=== PATIENT | female | born 1955 | race Caucasian/White ===

== ENCOUNTER 2017-09-29 09:23 | Inpatient (IN) | payer MEDICAID, SELFPAY ==
[2017-09-29] VITALS (40 sets, daily range): BP systolic 102–168; BP diastolic 56–92; PULSE 67–86; RESP 16–20; TEMP 36.1–36.9; O2SAT 96–100; BMI 17.3; BMI 17.7; BMI 16.1
--- NOTE | 2017-09-29 09:35 | XR_ITS ---
XR chest portable Ordering Physician: Theron Campos MD Patient Age: 62 years: Female HISTORY: ITS.REASON: chest pain TECHNIQUE: AP portable upright chest COMPARISON :Previous portable chest 01/13/2014 & 2012 CXR AP view FINDINGS Interval change with abnormal elongated masslike density right paratracheal region on today's study associated with apical pleural thickening intact, most evident extending medially towards the mediastinum. These findings require CT with contrast to further evaluate. Question there may have been a recent attempted central line placement which could contribute?. This suspected mass measuring 6 -7 cm length x 2.5 cm transverse. There is no shift of the trachea remains midline. . The lung verdugo appear clear with no focal infiltrate. Heart upper normal in size. Borderline cardiomegaly.. No CHF. No pleural effusions. Chest wall unremarkable Hilar regions. The left noe appears satisfactory. The right suprahilar region is questionably partially obscured by this right peritracheal density, mass. IMPRESSION: 1. New mass density right paratracheal requires warrants CT chest with contrast further evaluate. Prominent fullness & likely mass/adenopathy right peritracheal region along with generous pleural thickening at the medial right apex . Lungs clear otherwise. Borderline cardiomegaly
--- NOTE | 2017-09-29 09:41 | HMH.EDDIZZ ---
ED Disposition Clinical Impression: NSTEMI (non-ST elevated myocardial infarction), Orthostatic hypotension, Hypokalemia Anemia Qualifiers: Anemia type: unspecified type Qualified Code(s): D64.9 - Anemia, unspecified Disposition: Admitted As Inpatient Condition on Discharge: Good Time of Disposition: 10:30 - Critical Care Critical Care Time: Yes Attestation: On , the high probability of a clinically significant, sudden or life threatening deterioration of the following system(s) required my full and direct attention, intervention and personal management. The time I documented below is in addition to time spent performing reported procedures but includes the following listed in this critical care notation. Total Critical Care Time: 45 Vital system(s) involved:: Circulatory Failure My critical care processes included: Assessment & monitoring of V/S, Initial and Re-exams, Data Review/Interpretation, Coordinating Care, Medication Orders and management, Documentation Medical Decision Making - Medical Records Medical records reviewed: Yes: I reviewed the patient's medical records. Vital Signs: 09/29/17 09:24 09/29/17 09:41 Temperature 97.0 F L Temperature Source Oral Pulse Rate [Orthostatic Lying Right Brachial] 82 Pulse Rate [Orthostatic Standing Right Brachial] 86 Pulse Rate [Right Brachial] 82 Respiratory Rate 18 Blood Pressure [Orthostatic Lying Right Arm] 132/60 Blood Pressure [Orthostatic Standing Right Arm] 102/56 Blood Pressure [Right Arm] 106/67 Blood Pressure Mean [Right Arm] 80 Blood Pressure Source [Right Arm] Automatic Cuff Blood Pressure Position [Right Arm] Sitting 02 Sat by Pulse Oximetry 98 Oxygen Delivery Method Room Air - Lab Data Lab results reviewed: Yes: I reviewed the patient's lab results. Lab Results 09/29/17 09:35: D-Dimer 852 H* 09/29/17 09:35: Sodium 132 L, Potassium 2.7 L*, Chloride 95 L, Carbon Dioxide 30, Anion Gap 9.7, BUN 18, Creatinine 0.82, Estimated Creat Clear 39, Estimated GFR 70, Est GFR ( Amer) 85, Glucose 131 H, Calcium 9.4, Total Bilirubin 0.5, AST 21, ALT 31, Alkaline Phosphatase 138 H, Total Protein 7.4, Albumin 2.4 L, Globulin 5.0 H, Albumin/Globulin Ratio 0.5 L 09/29/17 09:35: WBC 8.6, RBC 3.14 L, Hgb 6.9 L*, Hct 23.8 L*, MCV 75.4 L, MCH 21.9 L, MCHC 29.0 L, RDW 16.1, Plt Count 691 H, MPV 7.2 L, Neut % (Auto) 80.9 H, Lymph % (Auto) 13.2, [place] % (Auto) 5.5, Eos % (Auto) 0.0 L, Baso % (Auto) 0.3, Neut # (Auto) 6.9, Lymph # (Auto) 1.1, [place] # (Auto) 0.5, Eos # (Auto) 0.0, Baso # (Auto) 0.0 09/29/17 09:35: Total Creatine Kinase 75, CK-MB (CK-2) 1.5, CK-MB (CK-2) Rel Index 2.0, Troponin I < 0.02 09/29/17 09:35: B-Natriuretic Peptide 470 H 09/29/17 10:42: Hgb 5.8 L*, Hct 20.1 L* 09/29/17 10:42: Blood Type O Positive, Antibody Screen Negative, Crossmatch (AHG) See Detail Result diagrams: 09/29/17 10:42 09/29/17 09:35 Orders (Tests/Meds): ED MEDICATIONS Generic Name Dose Route Start Last Admin Trade Name Freq PRN Reason Stop Dose Admin Sodium Chloride 250 mls @ 25 mls/hr 09/29/17 11:49 09/29/17 13:36 Sod Chlor 0.9% 250ml Bag IV 09/30/17 11:29 25 mls/hr .Q10H ALYX Administration Sodium Chloride 1,000 mls @ 75 mls/hr 09/29/17 11:49 09/29/17 13:35 Sod Chlor 0.9% 1000ml Bag IV 10/29/17 11:48 75 mls/hr .[id number] ALYX Administration Discontinued Medications Generic Name Dose Route Start Last Admin Trade Name Freq PRN Reason Stop Dose Admin Aspirin 324 mg 09/29/17 09:34 09/29/17 10:59 Aspirin 81mg Chewable Tablet PO 09/29/17 09:35 324 mg ONCE ONE Administration Furosemide 20 mg 09/29/17 11:19 09/29/17 13:35 Lasix 20mg/2ml Vial IV 09/29/17 11:20 Not Given ONCE ONE Furosemide 20 mg 09/29/17 11:49 Lasix 20mg/2ml Vial IV 09/29/17 11:50 ONCE ONE Sodium Chloride 500 mls @ 999 mls/hr 09/29/17 09:45 09/29/17 11:03 Sod Chlor 0.9% 1000ml Bag IV 09/29/17 10:15 Not Given .Q31M ALYX
--- NOTE | 2017-09-29 09:42 | PC.NURSE ---
elle rodriguez at bedside
[2017-09-29 09:55] LABS: Basophils % 0.3 % (0.1-2.0); Lymphocytes # 1.1 K/mm3 (0.7-4.5); Lymphocytes % 13.2 K/mm3 (10-50); Mean Corpuscular Hemoglobin 21.9 pg (27.0-31.2); Mean Corpuscular Volume 75.4 fl (81-99); Mean Platelet Volume 7.2 fl (7.4-10.4); Monocytes # 0.5 K/mm3 (0.1-1.0); Monocytes % 5.5 % (1.7-9.3); Neutrophils # 6.9 K/mm3 (1.8-7.8); Neutrophils % 80.9 % (37.0-80.0); Platelet Count 691 K/mm3 (142-424); Red Blood Count 3.14 M/mm3 (4.20-5.40); Red Cell Distribution Width 16.1 % (11.5-17.5); White Blood Count 8.6 K/mm3 (4.8-10.8)
[2017-09-29 10:02] LABS: Alanine Aminotransferase 31 U/L (12-78); Albumin Level 2.4 gm/dL (3.4-5.0); Albumin/Globulin Ratio 0.5 (1.1-1.8); Alkaline Phosphatase 138 U/L (46-116); Anion Gap 9.7 mEq/L (5-15); Aspartate Amino Transferase 21 U/L (15-37); Bilirubin,Total 0.5 mg/dL (0.2-1.0); Blood Urea Nitrogen 18 mg/dL (7-18); Calcium 9.4 mg/dL (8.5-10.1); Carbon Dioxide 30 mmol/L (21.0-32.0); Chloride 95 mmol/L (98-107); Creatinine Clearance Estimated 39 mL/min (0-300); Creatinine,Serum 0.82 mg/dL (0.55-1.02); Estimated Glomerular Filt Rate 70 ml/min (>60); GFR (African American) 85 ML/MIN (>60); Glucose 131 mg/dL (74-106); Sodium 132 mmol/L (136-145); Total Protein,Serum 7.4 gm/dL (6.4-8.2)
[2017-09-29 10:03] LABS: Hematocrit 23.8 % (37.0-47.0)
[2017-09-29 10:04] LABS: Hemoglobin 6.9 g/dL (12.2-16.2)
--- NOTE | 2017-09-29 10:05 | CA_ITS ---
PROCEDURE: 2-D M-mode and color Doppler study INDICATIONS FOR THE TEST: Chest pain X COPDX Heart Murmur Tobacco SmokingX Palpitations Fatigue Syncope Edema HypertensionXDiabetes Mellitus Rheumatic Fever SOBXDOE Obesity Hyperlipidemia Family History HD Additional History ECTOPY DURING EXAM PATIENT INFORMATION HEIGHT: 60 WEIGHT:97 GENDER: Female B/P:135/73 2-D/M-MODE INTERPRETATION: 2-D MEASUREMENTS OBSERVED VALUES IN CMS Right Ventricular Dimension (RVDd) 2.2 Interventricular Septum (Thickness)(IVsd) .6 Left Ventricular Internal Dimensions(LVIDd) 5.5 Left Ventricular Posterior Wall (Thickness)(LVPWd) .7 Aortic Root 2.8 Aortic Cusp Separation 1.4 Left Atrial Dimensions (LAD) 2.3 2D 1. Left atrium is mildly enlarged, left ventricle is normal size, visually estimated ejection fraction 55% with no obvious regional wall motion abnormality. 2. The right atrium is mildly enlarged, right ventricle is normal size and contractility. 3. The aortic valve is minimally thickened and fibrosed. 4. The mitral and tricuspid valve leaflets are minimally thickened. 5. The pulmonic valve is poorly visualized. 6. Small circumferential pericardial effusion noted. DOPPLER INTERROGATION: Doppler interrogation of the aortic, mitral and tricuspid valvular presence of mild mitral and moderate tricuspid regurgitation, calculated right ventricular systolic pressure is 59 mmHg consistent with moderate pulmonary hypertension. Grade 1 diastolic dysfunction seen with tissue Doppler evidence of raised left atrial pressure. CONCLUSION: 1. Mild biatrial enlargement, normal left ventricular size, visually estimated ejection fraction 55% with no obvious regional wall motion abnormality. Grade 1 diastolic dysfunction seen with tissue Doppler evidence of raised left atrial pressure. 2. Mild mitral and moderate tricuspid regurgitation, calculated right ventricular systolic pressure is 59 mmHg consistent with moderate pulmonary hypertension. 3. Small circumferential pericardial effusion noted.
[2017-09-29 10:08] LABS: Potassium 2.7 mmoL/L (3.5-5.1)
[2017-09-29 10:15] LABS: Creatine Kinase 75 U/L (26-192); Creatine Kinase MB 1.5 mg/ml (0.0-3.6); Troponin I < 0.02 ng/ml (0.00-0.06)
[2017-09-29 10:39] LABS: D-Dimer 852 (0-400)
[2017-09-29 10:58] LABS: Hematocrit 20.1 % (37.0-47.0); Hemoglobin 5.8 g/dL (12.2-16.2)
--- NOTE | 2017-09-29 10:59 | PC.NURSE ---
NOTIFIED OF NEWEST LAB WORK
--- NOTE | 2017-09-29 11:56 | HMH.CNCARD ---
History of Present Illness Consult date: 09/29/17 Consult reason: shortness of breath Chief complaint: SOA, chest pain Additional Medical History:: 1. Tobacco use, since age 11, 1 per day 2. Hypertension, recently started on lisinopril at the end of 2016 3. Hyperlipidemia History of present illness: 62-year-old white female seen in the emergency department for 3 day history of exertional shortness of breath. 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 She denies any recent fever, chills, nausea, vomiting or diarrhea. No previous cardiac history. EKG shows ST segment depression in the inferior and lateral leads, however when compared with previous EKG these are similar. Initial troponin is normal. Cardiology consulted for evaluation and recommendations. [facility] History Medical History: Reports:: Hyperlipidemia, Hypertension - *Social History Smoking Status: Current every day smoker Tobacco Type: cigarettes # Packs/Day (cigarettes): 1 Alcohol Intake: never - Psychiatric History Expresses thoughts of harming self/others: None Suicide Plan Description: No Plan Meds Home Medications Medication Instructions Recorded Confirmed Type Atorvastatin Calcium [Atorvastatin 20 mg PO DAILY 09/29/17 09/29/17 History 20mg Tab] Cholecalciferol (Vitamin D3) 1 % PO DIRECTED 09/29/17 09/29/17 History [Vitamin D3 50,000 unit Cap] Fluticasone/Vilanterol [Breo 1 spray IH DIRECTED 09/29/17 09/29/17 History Ellipta 100-25 Mcg INH] Lisinopril [Lisinopril 10mg Tab] 1 tab PO DIRECTED 09/29/17 09/29/17 History Allergies Allergy/AdvReac Type Severity Reaction Status Date / Time From TYLENOL Allergy Mild I-RASH Uncoded 09/29/17 09:32 Review of Systems - *Cardiovascular Reports chest pain - *Respiratory Reports shortness of breath with activity - *Gastrointestinal Denies abdominal pain Exam Vital signs and Labs for Last 24 Hours: Temp Pulse Resp BP Pulse Ox 98.2 F 75 20 148/69 96 09/29/17 11:51 09/29/17 11:51 09/29/17 11:51 09/29/17 11:51 09/29/17 11:51 I & O for Last 24 hours: Intake & Output 03/0209/27/17 09/28/17 09/29/17 11:59 11:59 11:59 11:59 Weight 91 lb 4 oz - *Routine Neck Exam Absent: JVD Comments: Bilateral carotid bruits versus radiation murmur noted. - *Routine Respiratory Exam Present: CTA bilaterally - *Routine Cardiovascular Exam Present: RRR, murmur - *Routine Abdominal Exam Present: soft. Absent: tenderness - *Routine Extremities Exam Comments: 1+ pitting edema of the ankle areas. Strong palpable dorsalis pedis and posterior tibial pulses bilaterally. - *Routine Neurological Exam Present: alert, oriented X3, moving all extremities Assessment and Plan (1) Anemia Current visit: Yes Status: Acute Category: Medical Code(s): D64.9 - Anemia, unspecified (2) Shortness of breath Current visit: Yes Status: Acute Category: Medical Code(s): R06.02 - Shortness of breath (3) Abnormal electrocardiogram [ECG] [EKG] Current visit: Yes Status: Acute Category: Medical Code(s): R94.31 - Abnormal electrocardiogram [ECG] [EKG] (4) Hypokalemia Current visit: Yes Status: Acute Category: Medical Code(s): E87.6 - Hypokalemia (5) Orthostatic hypotension Current visit: Yes Status: Acute Category: Medical Code(s): I95.1 - Orthostatic hypotension (6) Hyperlipidemia Current visit: Yes Status: Acute Category: Medical Code(s): E78.5 - Hyperlipidemia, unspecified (7) Hypertension Current visit: Yes Status: Acute Category: Medical Code(s): I10 - Essential (primary) hypertension - Assessment and plan all Dx Assessment and Plan for all problems:: 1. Echocardiogram has been performed with preliminary reading showing preserved ejection fraction without significant valvular heart disease. Official
[2017-09-29 13:16] LABS: CKMB Relative Index 1.1 U/L (0-4.0); Creatine Kinase 62 U/L (26-192); Creatine Kinase MB 0.7 mg/ml (0.0-3.6); Troponin I < 0.02 ng/ml (0.00-0.06)
--- NOTE | 2017-09-29 14:23 | HMH.GSCON ---
*Admission Date: 09/29/17 *Chief complaint: Weakness and chest discomfort *History of present illness: This is a 62-year-old female seen in consultation from her primary service after being evaluated in the emergency department for weakness and chest discomfort. She was found to have fairly significant anemia and is currently undergoing a 4 unit transfusion of packed red blood cells. No bright red blood per rectum. No hematemesis. She is uncertain with regard to melena but states that she does occasionally have black and occasionally brown stool . Some pain in the lower abdomen. No definitive epigastric pain or severe reflux. No unexplained weight loss. Review of Systems - Constitutional Denies anorexia - Eyes Denies change in vision - ENT Denies bleeding gums - *Cardiovascular Reports lightheadedness, Denies generalized swelling - *Respiratory Denies cough - *Gastrointestinal Denies heartburn, Denies vomiting blood, Denies bright, red blood in stools, Denies vomiting - *Genitourinary Denies abnormal vaginal bleeding - *Neurologic Denies abnormal speech - Psychiatric Denies anxiety - Hematologic/Lymphatic Denies easy bleeding, Denies easy bruising [facility] History Medical History: Reports:: Hyperlipidemia, Hypertension Denies:: Diabetes Mellitus Type 1, Diabetes Mellitus Type 2 Other Surgeries: Yes: Cardiac Catheterization (Nstemi) - *Social History Educational Level: Completed Grade School Smoking Status: Current every day smoker Tobacco Type: cigarettes # Packs/Day (cigarettes): 1 Alcohol Intake: never Occupational Status: employed - Psychiatric History Expresses thoughts of harming self/others: None Suicide Plan Description: No Plan *Family Hx:: Heart Attack Meds Home Medications Medication Instructions Recorded Confirmed Type Atorvastatin Calcium [Atorvastatin 20 mg PO DAILY 09/29/17 09/29/17 History 20mg Tab] Cholecalciferol (Vitamin D3) 1 % PO DIRECTED 09/29/17 09/29/17 History [Vitamin D3 50,000 unit Cap] Fluticasone/Vilanterol [Breo 1 spray IH DIRECTED 09/29/17 09/29/17 History Ellipta 100-25 Mcg INH] Lisinopril [Lisinopril 10mg Tab] 1 tab PO DIRECTED 09/29/17 09/29/17 History Allergies Allergy/AdvReac Type Severity Reaction Status Date / Time From TYLENOL Allergy Mild I-RASH Uncoded 09/29/17 09:32 Exam Vital signs and Labs for Last 24 Hours: Temp Pulse Resp BP Pulse Ox 97.8 F 72 20 136/70 98 09/29/17 13:15 09/29/17 13:15 09/29/17 13:15 09/29/17 13:15 09/29/17 13:15 Laboratory Results - last 24 hr 09/29/17 11:30: Blood Type Confirm O Positive 09/29/17 12:44: Total Creatine Kinase 62, CK-MB (CK-2) 0.7 D, CK-MB (CK-2) Rel Index 1.1, Troponin I < 0.02 I & O for Last 24 hours: Intake & Output 09/27/17 09/28/17 09/29/17 09/30/17 11:59 11:59 11:59 11:59 Weight 91 lb 4 oz - Constitutional no acute distress - *Routine Respiratory Exam Absent: respiratory distress - *Routine Cardiovascular Exam Present: RRR - *Routine Abdominal Exam Present: soft Results - Labs 09/29/17 10:42 09/29/17 09:35 Laboratory Results - last 24 hr 09/29/17 11:30: Blood Type Confirm O Positive 09/29/17 12:44: Total Creatine Kinase 62, CK-MB (CK-2) 0.7 D, CK-MB (CK-2) Rel Index 1.1, Troponin I < 0.02 Assessment and Plan (1) Anemia Current visit: Yes Status: Acute Qualifiers: Anemia type: unspecified type Qualified Code(s): D64.9 - Anemia, unspecified Category: Medical Code(s): D64.9 - Anemia, unspecified No sign of excessive acute loss. Blood transfusion as ordered by primary service Follow-up hemoglobin/hematocrit Likely EGD tomorrow Colonoscopy in near future (preferably bowel preparation for colonoscopy can be withheld for a few days or a few weeks in order to allow her hemoglobin to be normalized). Other workup and evaluation pending results of above, but may include
--- NOTE | 2017-09-29 14:29 | P.CONS_ITS ---
*Admission Date: 09/29/17 *Chief complaint: Weakness and chest discomfort *History of present illness: This is a 62-year-old female seen in consultation from her primary service after being evaluated in the emergency department for weakness and chest discomfort. She was found to have fairly significant anemia and is currently undergoing a 4 unit transfusion of packed red blood cells. No bright red blood per rectum. No hematemesis. She is uncertain with regard to melena but states that she does occasionally have black and occasionally brown stool . Some pain in the lower abdomen. No definitive epigastric pain or severe reflux. No unexplained weight loss. Review of Systems - Constitutional Denies anorexia - Eyes Denies change in vision - ENT Denies bleeding gums - *Cardiovascular Reports lightheadedness, Denies generalized swelling - *Respiratory Denies cough - *Gastrointestinal Denies heartburn, Denies vomiting blood, Denies bright, red blood in stools, Denies vomiting - *Genitourinary Denies abnormal vaginal bleeding - *Neurologic Denies abnormal speech - Psychiatric Denies anxiety - Hematologic/Lymphatic Denies easy bleeding, Denies easy bruising [facility] History Medical History: Reports:: Hyperlipidemia, Hypertension Denies:: Diabetes Mellitus Type 1, Diabetes Mellitus Type 2 Other Surgeries: Yes: Cardiac Catheterization (Nstemi) - *Social History Educational Level: Completed Grade School Smoking Status: Current every day smoker Tobacco Type: cigarettes # Packs/Day (cigarettes): 1 Alcohol Intake: never Occupational Status: employed - Psychiatric History Expresses thoughts of harming self/others: None Suicide Plan Description: No Plan *Family Hx:: Heart Attack Meds Home Medications Medication Instructions Recorded Confirmed Type Atorvastatin Calcium [Atorvastatin 20 mg PO DAILY 09/29/17 09/29/17 History 20mg Tab] Cholecalciferol (Vitamin D3) 1 % PO DIRECTED 09/29/17 09/29/17 History [Vitamin D3 50,000 unit Cap] Fluticasone/Vilanterol [Breo 1 spray IH DIRECTED 09/29/17 09/29/17 History Ellipta 100-25 Mcg INH] Lisinopril [Lisinopril 10mg Tab] 1 tab PO DIRECTED 09/29/17 09/29/17 History Allergies Allergy/AdvReac Type Severity Reaction Status Date / Time From TYLENOL Allergy Mild I-RASH Uncoded 09/29/17 09:32 Exam Vital signs and Labs for Last 24 Hours: Temp Pulse Resp BP Pulse Ox 97.8 F 72 20 136/70 98 09/29/17 13:15 09/29/17 13:15 09/29/17 13:15 09/29/17 13:15 09/29/17 13:15 Laboratory Results - last 24 hr 09/29/17 11:30: Blood Type Confirm O Positive 09/29/17 12:44: Total Creatine Kinase 62, CK-MB (CK-2) 0.7 D, CK-MB (CK-2) Rel Index 1.1, Troponin I < 0.02 I & O for Last 24 hours: Intake & Output 09/27/17 09/28/17 09/29/17 09/30/17 11:59 11:59 11:59 11:59 Weight 91 lb 4 oz - Constitutional no acute distress - *Routine Respiratory Exam Absent: respiratory distress - *Routine Cardiovascular Exam Present: RRR - *Routine Abdominal Exam Present: soft Results - Labs 09/29/17 10:42 09/29/17 09:35 Laboratory Results - last 24 hr 09/29/17 11:30: Blood Type Confirm O Positive 09/29/17 12:44: Total Creatine Kinase 62, CK-MB (CK-2) 0.7 D, CK-MB
[2017-09-29 18:58] LABS: Creatine Kinase 59 U/L (26-192); Troponin I < 0.02 ng/ml (0.00-0.06)
[2017-09-29 19:02] LABS: CKMB Relative Index 0.8 U/L (0-4.0); Creatine Kinase MB < 0.5 mg/ml (0.0-3.6)
--- NOTE | 2017-09-29 19:04 | HMH.HP ---
*Admission Date: 09/29/17 *History of present illness: 62-year-old white female with history of weight loss in the past had previously been scheduled for colonoscopy but did not follow through with this test who came to the emergency department today with 3 hours of shortness of air and some chest discomfort. Initially was thought to be cardiac related but hemoglobin returned at less than 6 g. Admitted to hospital for transfusion, surgery consultation. Patient reports mostly brown stool but occasionally admits to some melena. Denies hematemesis, vomiting or diarrhea. Feels much better after I examined her after second unit of blood. [facility] History Medical History: Reports:: Hyperlipidemia, Hypertension Denies:: Diabetes Mellitus Type 1, Diabetes Mellitus Type 2 Other Surgeries: Yes: Cardiac Catheterization (Nstemi) - *Social History Educational Level: Completed Grade School Smoking Status: Current every day smoker Tobacco Type: cigarettes # Packs/Day (cigarettes): 1 Alcohol Intake: never Occupational Status: employed - Psychiatric History Expresses thoughts of harming self/others: None Suicide Plan Description: No Plan *Family Hx:: Heart Attack Review of Systems - Review of Systems Review of systems:: unable to obtain, other, pertinent systems reviewed and negative unless documented below - *Neurologic Denies abnormal speech Meds Home Medications Medication Instructions Recorded Confirmed Type Atorvastatin Calcium [Atorvastatin 20 mg PO DAILY 09/29/17 09/29/17 History 20mg Tab] Cholecalciferol (Vitamin D3) 1 % PO DIRECTED 09/29/17 09/29/17 History [Vitamin D3 50,000 unit Cap] Fluticasone/Vilanterol [Breo 1 spray IH DIRECTED 09/29/17 09/29/17 History Ellipta 100-25 Mcg INH] Lisinopril [Lisinopril 10mg Tab] 1 tab PO DIRECTED 09/29/17 09/29/17 History Allergies Allergy/AdvReac Type Severity Reaction Status Date / Time From TYLENOL Allergy Mild I-RASH Uncoded 09/29/17 09:32 Exam Vital signs and Labs for Last 24 Hours: Temp Pulse Resp BP Pulse Ox 98.1 F 74 20 150/69 98 09/29/17 18:56 09/29/17 18:56 09/29/17 18:56 09/29/17 18:56 09/29/17 18:56 Laboratory Results - last 24 hr 09/29/17 11:30: Blood Type Confirm O Positive 09/29/17 12:44: Total Creatine Kinase 62, CK-MB (CK-2) 0.7 D, CK-MB (CK-2) Rel Index 1.1, Troponin I < 0.02 09/29/17 18:25: Total Creatine Kinase 59, CK-MB (CK-2) < 0.5 D, CK-MB (CK-2) Rel Index 0.8, Troponin I < 0.02 I & O for Last 24 hours: Intake & Output 09/27/17 09/28/17 09/29/17 09/30/17 11:59 11:59 11:59 11:59 Intake Total 832 / 832 Balance 832 / 832 Weight 91 lb 4 oz Narrative: Alert. Awake. No jaundice, no scleral icterus. Lungs are clear, heart rate regular. Abdomen soft, nontender. No masses. Extremities without clubbing or cyanosis or edema. H&P: Result - Labs Labs: Cardiac Enzymes 09/29/17 09/29/17 Range/Units 12:44 18:25 Total Creatine Kinase 62 59 (26-192) U/L CK-MB (CK-2) 0.7 D < 0.5 D (0.0-3.6) mg/ml Troponin I < 0.02 < 0.02 (0.00-0.06) ng/ml Assessment and Plan (1) Anemia Current visit: Yes Status: Acute Qualifiers: Anemia type: unspecified type Qualified Code(s): D64.9 - Anemia, unspecified Category: Medical Code(s): D64.9 - Anemia, unspecified (2) Shortness of breath Current visit: Yes Status: Acute Category: Medical Code(s): R06.02 - Shortness of breath (3) Abnormal electrocardiogram [ECG] [EKG] Current visit: Yes Status: Acute Category: Medical Code(s): R94.31 - Abnormal electrocardiogram [ECG] [EKG] (4) Hypokalemia Current visit: Yes Status: Acute Category: Medical Code(s): E87.6 - Hypokalemia (5) Orthostatic hypotension Current visit: Yes Status: Acute Category: Medical Code(s): I95.1 - Orthostatic hypotension (6) Hyperlipidemia Current visit: Yes Status: Acute Category: Medical Code(s)
[2017-09-30] VITALS (10 sets, daily range): BP systolic 105–158; BP diastolic 43–69; PULSE 59–66; RESP 16–22; TEMP 36.4–36.9; O2SAT 94–99
--- NOTE | 2017-09-30 04:29 | PC.NURSE ---
Addendum entered by Deb Cullen RN 09/30/17 04:31: PT NPO SINCE MIDNIGHT FOR PROCEDURE. Original Note: PT RECEIVED LAST OF 4 UNITS OF PRBCS THIS SHIFT. TOLERATED WELL. PT HAS SLEPT SINCE BLOOD TRANSFUSION COMPLETED. NO COMPLAINTS.
--- NOTE | 2017-09-30 06:32 | HMH.ANESCL ---
[facility] Anesthesia Checklist - Patient Identification Patient Identification: Arm Band, Verbal (Name & ) - Structural Data Admitted From: Inpatient Planned Operative Procedure/s: egd Consent for Planned Operative Procedure(s) Verified: Yes Verified Documents: Surgical Consent - NPO Status Verified Time NPO: 00:00 - Chart Verification Results Verified: CBC, BMP - Additional verifications Patient : No Anesthesia Reactions: No Hx Blood Transfusions: Yes Blood Transfusion Reaction: No Cephalosporin Allergy: No Previous Colonoscopy: No - Cardiovascular Assessment Heart Sounds: S1 & S2 Pulse Strength: Baseline Pulse Rhythm: Regular Peripheral Edema: No - Airway Assessment C-Spine Mobility Assessed: Yes TMJ Mobility Assessed: Yes Dentition: Edentulous - Neurological Assessment Level of Consciousness: Awake, Alert, Appropriate Hx Seizures: No Numbness or tingling in extremities: No - Anesthesia Plan Anesthesia Risk discussed: Yes ASA Class: II Anesthesia Type: [facility] Anesthesia HX I have reviewed the patient's past medical history: Yes Medical History: Reports:: Anxiety, Hyperlipidemia, Hypertension Denies:: Diabetes Mellitus Type 1, Diabetes Mellitus Type 2 Other Surgeries: Yes: Cardiac Catheterization (Nstemi) *Family Hx:: Heart Attack
--- NOTE | 2017-09-30 06:44 | PC.NURSE ---
AT 0605 PT TAKEN DOWN FOR EGD PER WHEELCHAIR AND ASSIST OF OR STAFF.
[2017-09-30 07:11] LABS: Hematocrit 34.6 % (37.0-47.0)
--- NOTE | 2017-09-30 07:16 | HMH.PHAVTE ---
[facility] Pharmacy VTE Monitoring - Patient Demographics Admission date: 09/29/17 Report Date: 09/30/17 Time: 07:16 Allergies/Adverse Reactions: Patient Allergies From TYLENOL Allergy (Mild, Uncoded 09/29/17 09:32) I-RASH Height: 1.6 m Weight: 41.39 kg Patient Problems: Current Active Problems NSTEMI (non-ST elevated myocardial infarction) (Acute) Orthostatic hypotension (Acute) Anemia (Acute) Hypokalemia (Acute) Shortness of breath (Acute) Abnormal electrocardiogram [ECG] [EKG] (Acute) Hypertension (Acute) Hyperlipidemia (Acute) - VTE Risk Labs: VTE Related Lab Results Hgb 5.8 g/dL (12.2-16.2) L* 09/29/17 10:42 Hct 20.1 % (37.0-47.0) L* 09/29/17 10:42 Plt Count 691 K/mm3 (142-424) H 09/29/17 09:35 BUN 18 mg/dL (7-18) 09/29/17 09:35 Creatinine 0.82 mg/dL (0.55-1.02) 09/29/17 09:35 Estimated Creat Clear 39 mL/min (0-300) 09/29/17 09:35 Was VTE Risk Assessment Performed: Yes VTE Score: 1 Clinical Trial Participant: No - Prophylaxis VTE Prophylaxis Ordered?: Yes Types of VTE Prophylaxis: TEDS Knee High
--- NOTE | 2017-09-30 07:23 | CT_ITS ---
CT abdomen pelvis w con CLINICAL INDICATION: Pain, weakness, anemia ITS.REASON: anemia ORDERING PHYSICIAN: Theron Campos MD PATIENT AGE: 62 years COMPARISON: 03/19/2013 TECHNIQUE: Axial images obtained with sagittal and coronal reformats. PROCEDURE: Oral Contrast: Gastroview IV Contrast: 75 mL's of Isovue-370. FINDINGS: There are nodular densities noted in the right lung base posteriorly may be related to pneumonia. There are trace bilateral pleural effusions with left basilar atelectatic change. The liver has a mottled appearance. This is nonspecific and may be seen as a result of hepatic venous congestion which can be seen with hepatic venoocclusive disease, Budd-Chiari syndrome and congestive hepatopathy. The spleen and adrenal glands are unremarkable. There is minimal prominence of the pancreatic duct nonspecific. No calcified gallstones are evident. Unremarkable kidneys. No intestinal obstruction or free air. No evidence of appendicitis or diverticulitis. There is a 3 cm left ovarian cyst and a 1.3cm left ovarian cyst. A mild amount retained colonic feces. No acute bony anomalies. IMPRESSION: 1. Mottled appearance of the liver as described above which may be seen with hepatic venous congestion. 2. Nodular opacities in the right lung base suspicious for developing infiltrate 3. Other nonacute findings as described above
--- NOTE | 2017-09-30 07:24 | HMH.SCOPE ---
- Procedure: Date: 09/30/17 Procedure Performed:: Esophagogastroduodenoscopy with biopsy Indications:: This is a 62-year-old female who came in with chest discomfort and shortness of air and was found to be severely anemic. After discussion with the patient concerning the risks and benefits the decision was made to initially proceed with esophagogastroduodenoscopy. She understands a further evaluation and management to include colonoscopy is warranted. Performing Provider:: Raffaele Freeman MD Referring Provider:: Dr. Campos Sedation:: Monitored anesthesia care Procedure:: Informed consent was obtained, the patient was taken to the endoscopy suite. Monitored anesthesia care ensued after she was transferred to the left lateral decubitus and. The gastroscope was advanced. The gastroesophageal junction was at 40 cm. The stomach was entered. Patchy inflammation was noted. Retroflexion revealed no definitive abnormality, but visualization was limited secondary to severe contraction of the fundus and cardia. Antral biopsies were obtained. The pylorus was intubated. The duodenal bulb was severely inflamed and shallow linear ulcerations with no active bleeding are noted. The gastroscope was carefully removed and the patient was transferred to recovery. Findings:: Gastroesophageal junction 40 cm Patchy gastritis Isolated severe duodenitis with shallow linear ulceration Specimens:: Antral biopsies Recommendations:: Further evaluation with regard to anemia to include colonoscopy, CT scan, possible UGI/SBFT, and possible capsule endoscopy pending. The patient will also require repeat EGD in 6-8 weeks. She will be placed on a proton pump inhibitor, as well as Carafate. Complications:: No immediate Estimated blood obtained (mL): 1
[2017-09-30 07:25] LABS: Hemoglobin 11.1 g/dL (12.2-16.2)
[2017-09-30 08:28] LABS: Iron 13 ug/dL (27-139); UIBC 256 ug/dL (118-369)
--- NOTE | 2017-09-30 09:10 | HMH.ACPN2 ---
Internal Medicine - PN: Subj *Date: 09/30/17 *Time: 09:11 Interval history: Patient has returned from EGD and is awake. States she feels much better. She is ambulating to the bathroom without shortness of breath or dizziness. Hemoglobin significantly improved this morning, noted at 11.1. She denies any complaints. Alert and oriented x3. Frail, appears older than her age. Rate and rhythm regular. No LE edema. Lung sounds clear and equal bilaterally. Abdomen soft and nontender. No palpable masses Exam Vital signs and Labs for Last 24 Hours: Temp Pulse Resp BP Pulse Ox 97.6 F 65 16 143/62 96 09/30/17 07:25 09/30/17 08:00 09/30/17 08:00 09/30/17 08:00 09/30/17 08:00 Laboratory Results - last 24 hr 09/29/17 11:30: Blood Type Confirm O Positive 09/29/17 12:44: Total Creatine Kinase 62, CK-MB (CK-2) 0.7 D, CK-MB (CK-2) Rel Index 1.1, Troponin I < 0.02 09/29/17 18:25: Total Creatine Kinase 59, CK-MB (CK-2) < 0.5 D, CK-MB (CK-2) Rel Index 0.8, Troponin I < 0.02 09/30/17 07:00: Hgb 11.1 L D, Hct 34.6 L I & O for Last 24 hours: Intake & Output 09/27/17 09/28/17 09/29/17 09/30/17 11:59 11:59 11:59 11:59 Intake Total 1263 / 1263 Balance 1263 / 1263 Weight 91 lb 4 oz 91 lb 4 oz Assessment and Plan (1) Anemia Current visit: Yes Status: Acute Qualifiers: Anemia type: unspecified type Qualified Code(s): D64.9 - Anemia, unspecified Category: Medical Code(s): D64.9 - Anemia, unspecified (2) Shortness of breath Current visit: Yes Status: Acute Category: Medical Code(s): R06.02 - Shortness of breath (3) Abnormal electrocardiogram [ECG] [EKG] Current visit: Yes Status: Acute Category: Medical Code(s): R94.31 - Abnormal electrocardiogram [ECG] [EKG] (4) Hypokalemia Current visit: Yes Status: Acute Category: Medical Code(s): E87.6 - Hypokalemia (5) Orthostatic hypotension Current visit: Yes Status: Acute Category: Medical Code(s): I95.1 - Orthostatic hypotension (6) Hyperlipidemia Current visit: Yes Status: Acute Category: Medical Code(s): E78.5 - Hyperlipidemia, unspecified (7) Hypertension Current visit: Yes Status: Acute Category: Medical Code(s): I10 - Essential (primary) hypertension - Assessment and plan all Dx Assessment and Plan for all problems:: CT abdomen and pelvis this morning. Will evaluate and treat as indicated.
[2017-09-30 09:11] LABS: Anion Gap 9.9 mEq/L (5-15); Blood Urea Nitrogen 33 mg/dL (7-18); Carbon Dioxide 26 mmol/L (21.0-32.0); Chloride 108 mmol/L (98-107); Creatinine Clearance Estimated 37 mL/min (0-300); Creatinine,Serum 0.68 mg/dL (0.55-1.02); Estimated Glomerular Filt Rate 87 ml/min (>60); GFR (African American) 105 ML/MIN (>60); Glucose 86 mg/dL (74-106); Potassium 3.9 mmoL/L (3.5-5.1); Sodium 140 mmol/L (136-145)
--- NOTE | 2017-09-30 13:13 | HMH.DCSUM ---
General - General Admission date: 09/29/17 Discharge date: 09/30/17 HPI HPI: 62-year-old white female with history of weight loss in the past had previously been scheduled for colonoscopy but did not follow through with this test who came to the emergency department today with 3 hours of shortness of air and some chest discomfort. Initially was thought to be cardiac related but hemoglobin returned at less than 6 g. Admitted to hospital for transfusion, surgery consultation. Patient reports mostly brown stool but occasionally admits to some melena. Denies hematemesis, vomiting or diarrhea. Feels much better after I examined her after second unit of blood. Hospital Course Hospital Course: Patient was admitted for PRBC transfusion and further evaluation. Serial enzymes were obtained which were normal. Cardiology was consulted and an echocardiogram was obtained which was unremarkable. See cardiology note. She was transfused with 4 units of PRBC's which significantly improved her symptoms. Hemoglobin remained stable overnight and was noted at 11.1 this morning. Surgery was consulted and patient was taken for EGD this morning which showed patchy gastritis and severe duodenitis with shallow linear ulcerations. Carafate and PPI were added. CXR was obtained which showed right peritracheal mass and thickening at right medial apex which is new. This is concerning as patient has an ongoing history of tobacco use. 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 CT chest is pending. Patient feels well and is ready to go home. Discharge home with short term FU with myself in 2 days. CBC and BMP prior to appointment. Will evaluate CT results and refer as indicated. Objective Vital signs: Temp Pulse Resp BP Pulse Ox 97.6 F 65 16 143/62 96 09/30/17 07:25 09/30/17 08:00 09/30/17 08:00 09/30/17 08:00 09/30/17 09:00 Narrative: See PN from this morning. Results Labs on day of discharge: Labs from last 24 hours 09/30/17 09/30/17 09/29/17 07:00 07:00 18:25 Hgb 11.1 L D Hct 34.6 L Sodium 140 Potassium 3.9 D Chloride 108 H Carbon Dioxide 26 Anion Gap 9.9 BUN 33 H D Creatinine 0.68 Estimated Creat Clear 37 Estimated GFR 87 Est GFR ( Amer) 105 D Glucose 86 D Total Creatine Kinase 59 CK-MB (CK-2) < 0.5 D CK-MB (CK-2) Rel Index 0.8 Troponin I < 0.02 09/29/17 12:44 Hgb Hct Sodium Potassium Chloride Carbon Dioxide Anion Gap BUN Creatinine Estimated Creat Clear Estimated GFR Est GFR ( Amer) Glucose Total Creatine Kinase 62 CK-MB (CK-2) 0.7 D CK-MB (CK-2) Rel Index 1.1 Troponin I < 0.02 DS: Diagnosis - Discharge Diagnosis (1) Anemia Status: Acute (2) Shortness of breath Status: Acute (3) Abnormal electrocardiogram [ECG] [EKG] Status: Acute (4) Hypokalemia Status: Acute (5) Orthostatic hypotension Status: Acute (6) Hyperlipidemia Status: Acute (7) Hypertension Status: Acute Discharge Plan - Patient Discharge Instructions ACTIVITY: Continue current activity DIET: continue same diet - Follow up Plan Follow up with: Odette Gamboa APRN [Nurse Practitioner] - 2 days Disposition: Home, Self-Fdc Medications: Home Medications Medication Instructions Recorded Confirmed Type Atorvastatin Calcium [Atorvastatin 20 mg PO DAILY 09/29/17 09/29/17 History 20mg Tab] Cholecalciferol (Vitamin D3) 1 cap PO WEEKLY 09/29/17 09/30/17 History [Vitamin D3 50,000 unit Cap] Fluticasone/Vilanterol [Breo 1 spray IH DIRECTED 09/29/17 09/29/17 History Ellipta 100-25 Mcg INH] Lisinopril [Lisinopril 10mg Tab] 10 mg PO DAILY 09/29/17 09/30/17 History Prescriptions/Medication Reconciliation: New Sucralfate [Carafate 1gm Tab] 1 gm PO ACHS #120 tab Pantoprazole Sodium [Protonix 40mg tablet] 40 mg PO BID 30 Days #60 tab Continue Lisin
--- NOTE | 2017-09-30 13:17 | P.DS_ITS ---
General - General Admission date: 09/29/17 Discharge date: 09/30/17 HPI HPI: 62-year-old white female with history of weight loss in the past had previously been scheduled for colonoscopy but did not follow through with this test who came to the emergency department today with 3 hours of shortness of air and some chest discomfort. Initially was thought to be cardiac related but hemoglobin returned at less than 6 g. Admitted to hospital for transfusion, surgery consultation. Patient reports mostly brown stool but occasionally admits to some melena. Denies hematemesis, vomiting or diarrhea. Feels much better after I examined her after second unit of blood. Hospital Course Hospital Course: Patient was admitted for PRBC transfusion and further evaluation. Serial enzymes were obtained which were normal. Cardiology was consulted and an echocardiogram was obtained which was unremarkable. See cardiology note. She was transfused with 4 units of PRBC's which significantly improved her symptoms. Hemoglobin remained stable overnight and was noted at 11.1 this morning. Surgery was consulted and patient was taken for EGD this morning which showed patchy gastritis and severe duodenitis with shallow linear ulcerations. Carafate and PPI were added. CXR was obtained which showed right peritracheal mass and thickening at right medial apex which is new. This is concerning as patient has an ongoing history of tobacco use. 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 CT chest is pending. Patient feels well and is ready to go home. Discharge home with short term FU with myself in 2 days. CBC and BMP prior to appointment. Will evaluate CT results and refer as indicated. Objective Vital signs: Temp Pulse Resp BP Pulse Ox 97.6 F 65 16 143/62 96 09/30/17 07:25 09/30/17 08:00 09/30/17 08:00 09/30/17 08:00 09/30/17 09:00 Narrative: See PN from this morning. Results Labs on day of discharge: Labs from last 24 hours 09/30/17 09/30/17 09/29/17 07:00 07:00 18:25 Hgb 11.1 L D Hct 34.6 L Sodium 140 Potassium 3.9 D Chloride 108 H Carbon Dioxide 26 Anion Gap 9.9 BUN 33 H D Creatinine 0.68 Estimated Creat Clear 37 Estimated GFR 87 Est GFR ( Amer) 105 D Glucose 86 D Total Creatine Kinase 59 CK-MB (CK-2) < 0.5 D CK-MB (CK-2) Rel Index 0.8 Troponin I < 0.02 09/29/17 12:44 Hgb Hct Sodium Potassium Chloride Carbon Dioxide Anion Gap BUN Creatinine Estimated Creat Clear Estimated GFR Est GFR ( Amer) Glucose Total Creatine Kinase 62 CK-MB (CK-2) 0.7 D CK-MB (CK-2) Rel Index 1.1 Troponin I < 0.02 DS: Diagnosis - Discharge Diagnosis (1) Anemia Status: Acute (2) Shortness of breath Status: Acute (3) Abnormal electrocardiogram [ECG] [EKG] Status: Acute (4) Hypokalemia Status: Acute (5) Orthostatic hypotension Status: Acute (6) Hyperlipidemia Status: Acute (7) Hypertension Status: Acute Discharge Plan - Patient Discharge Instructions ACTIVITY: Continue current activity
--- NOTE | 2017-09-30 14:28 | CT_ITS ---
CT chest w con HISTORY: The spinal mass seen on recent chest x-ray, chest pain, abnormal chest x-ray ITS.REASON: CHEST PAIN, WEAKNESS, NEW MASS ON CXR ORDERING PHYSICIAN: Theron Campos MD PATIENT AGE: 62 years TECHNIQUE: Axial images obtained following the administration of 50 mL of Isovue 370 . Sagittal, and coronal reformatted images are also generated and reviewed. COMPARISON: Radiograph of 09/29/2017 FINDINGS: There is a large right upper lobe mass within the medial aspect of the right upper lobe measuring 10 cm cephalad to caudad, 4.7 cm transverse, and 4.5 cm AP. This is contiguous with the right hilum and posterior mediastinum consistent with neoplasm. This involves the posterior segment of the right upper lobe with occlusion of that bronchus.. Increased density is present in the right upper lobe medially probably related to postobstructive pneumonitis. Cannot exclude extension of neoplasm. There is a small right pleural effusion there is a 2 x 1.2 cm node in the right precarinal region. No contralateral mediastinal adenopathy is evident. There are coronary artery calcifications. There is mild thickening of the pericardium anteriorly. There is trace left-sided effusion minimal atelectatic or fibrotic changes are present in right upper lobe anteriorly. Centrilobular and the symphysis changes are present with hyperinflation consistent with COPD. Upper abdominal images are unremarkable. No bony destructive process evident. IMPRESSION: 1. 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 There is increased density extending from the mass to the anterior chest wall medially which may be related to postobstructive changes versus direct extension of neoplasm. 2. Small bilateral effusions 3. Centrilobular emphysema
[2017-10-02 11:52] LABS: Iron Saturation 5 % (15-55)
--- NOTE | 2017-10-09 09:47 | P.CONS_ITS ---
History of Present Illness Consult date: 09/29/17 Consult reason: shortness of breath Chief complaint: SOA, chest pain Additional Medical History:: 1. Tobacco use, since age 11, 1 per day 2. Hypertension, recently started on lisinopril at the end of 2016 3. Hyperlipidemia History of present illness: 62-year-old white female seen in the emergency department for 3 day history of exertional shortness of breath. 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 She denies any recent fever, chills, nausea, vomiting or diarrhea. No previous cardiac history. EKG shows ST segment depression in the inferior and lateral leads, however when compared with previous EKG these are similar. Initial troponin is normal. Cardiology consulted for evaluation and recommendations. [facility] History Medical History: Reports:: Hyperlipidemia, Hypertension - *Social History Smoking Status: Current every day smoker Tobacco Type: cigarettes # Packs/Day (cigarettes): 1 Alcohol Intake: never - Psychiatric History Expresses thoughts of harming self/others: None Suicide Plan Description: No Plan Meds Home Medications Medication Instructions Recorded Confirmed Type Atorvastatin Calcium [Atorvastatin 20 mg PO DAILY 09/29/17 09/29/17 History 20mg Tab] Cholecalciferol (Vitamin D3) 1 % PO DIRECTED 09/29/17 09/29/17 History [Vitamin D3 50,000 unit Cap] Fluticasone/Vilanterol [Breo 1 spray IH DIRECTED 09/29/17 09/29/17 History Ellipta 100-25 Mcg INH] Lisinopril [Lisinopril 10mg Tab] 1 tab PO DIRECTED 09/29/17 09/29/17 History Allergies Allergy/AdvReac Type Severity Reaction Status Date / Time From TYLENOL Allergy Mild I-RASH Uncoded 09/29/17 09:32 Review of Systems - *Cardiovascular Reports chest pain - *Respiratory Reports shortness of breath with activity - *Gastrointestinal Denies abdominal pain Exam Vital signs and Labs for Last 24 Hours: Temp Pulse Resp BP Pulse Ox 98.2 F 75 20 148/69 96 09/29/17 11:51 09/29/17 11:51 09/29/17 11:51 09/29/17 11:51 09/29/17 11:51 I & O for Last 24 hours: Intake & Output 03/0209/27/17 09/28/17 09/29/17 11:59 11:59 11:59 11:59 Weight 91 lb 4 oz - *Routine Neck Exam Absent: JVD Comments: Bilateral carotid bruits versus radiation murmur noted. - *Routine Respiratory Exam Present: CTA bilaterally - *Routine Cardiovascular Exam Present: RRR, murmur - *Routine Abdominal Exam Present: soft. Absent: tenderness - *Routine Extremities Exam Comments: 1+ pitting edema of the ankle areas. Strong palpable dorsalis pedis and posterior tibial pulses bilaterally. - *Routine Neurological Exam Present: alert, oriented X3, moving all extremities Assessment and Plan (1) Anemia Current visit: Yes Status: Acute Category: Medical Code(s): D64.9 - Anemia , unspecified (2) Shortness of breath Current visit: Yes Status: Acute Category: Medical Code(s): R06.02 - Shortness of breath (3) Abnormal electrocardiogram [ECG] [EKG] Current visit: Yes Status: Acute Category: Medical Code(s): R94.31 - Abnormal electrocardiogram [ECG] [EKG] (4) Hypokalemia Current visit: Yes Status: Acute Category: Medical Code(s): E87.6
== END 2017-09-30 14:02 | disposition home or self-care (01) | DRG 812 ==
LOC: ER 10:53 → 2ND 12:09 → ER 12:22
PROVIDERS: Nurse Practitioner Family; Surgery; Admitting Provider Internal Medicine Adolescent Medicine; Emergency Provider Emergency Medicine; Family Provider Internal Medicine Adolescent Medicine; Visit Provider Internal Medicine Adolescent Medicine
PROC: 0DJ08ZZ Inspection of Upper Intestinal Tract, Via Natural or Artificial Opening Endoscopic (ICD-10-PCS; CPT 43235; principal; 2017-09-30 07:00)
DX: D64.9 Anemia, unspecified (principal); E87.6 Hypokalemia; I10 Essential (primary) hypertension; I95.1 Orthostatic hypotension; K29.70 Gastritis, unspecified, without bleeding; K29.80 Duodenitis without bleeding
CPT/HCPCS: 36430; 43239; 36415; 71045; 71260; 74177; 80048; 80053; 82550; 82553; 83550; 83880; 84484; 85014; 85018; 85025; 85378; 86850; 88305; 93005; 93306; 96365; 96366; 99284; P9016; Q9967

== ENCOUNTER → 2017-10-02 12:57 | Outpatient (CLI) | payer MEDICAID, SELFPAY ==
[2017-10-02 13:28] LABS: Alanine Aminotransferase 35 U/L (12-78); Albumin Level 1.8 gm/dL (3.4-5.0); Albumin/Globulin Ratio 0.5 (1.1-1.8); Alkaline Phosphatase 103 U/L (46-116); Anion Gap 12.9 mEq/L (5-15); Aspartate Amino Transferase 23 U/L (15-37); Bilirubin,Total 0.2 mg/dL (0.2-1.0); Blood Urea Nitrogen 22 mg/dL (7-18); Calcium 8.3 mg/dL (8.5-10.1); Carbon Dioxide 25 mmol/L (21.0-32.0); Chloride 102 mmol/L (98-107); Creatinine,Serum 0.67 mg/dL (0.55-1.02); Estimated Glomerular Filt Rate 89 ml/min (>60); GFR (African American) 107 ML/MIN (>60); Glucose 133 mg/dL (74-106); Sodium 137 mmol/L (136-145); Total Protein,Serum 5.8 gm/dL (6.4-8.2)
[2017-10-02 13:36] LABS: Potassium 2.9 mmoL/L (3.5-5.1)
[2017-10-02 13:41] LABS: Basophils % 0.2 % (0.1-2.0); Eosinophils % 0.3 % (0.1-12.0); Hematocrit 28.5 % (37.0-47.0); Hemoglobin 8.6 g/dL (12.2-16.2); Lymphocytes % 12.4 K/mm3 (10-50); Mean Corpuscular HGB Conc 30.1 g/dL (31.8-35.4); Mean Corpuscular Hemoglobin 26.1 pg (27.0-31.2); Mean Corpuscular Volume 86.6 fl (81-99); Mean Platelet Volume 7.5 fl (7.4-10.4); Monocytes # 0.5 K/mm3 (0.1-1.0); Monocytes % 6.3 % (1.7-9.3); Neutrophils # 6.7 K/mm3 (1.8-7.8); Neutrophils % 80.8 % (37.0-80.0); Platelet Count 424 K/mm3 (142-424); Red Blood Count 3.29 M/mm3 (4.20-5.40); Red Cell Distribution Width 17.6 % (11.5-17.5); White Blood Count 8.3 K/mm3 (4.8-10.8)
== END ==
PROVIDERS: Visit Provider Nurse Practitioner Family
DX: E87.6 Hypokalemia (principal); D64.9 Anemia, unspecified
CPT/HCPCS: 36415; 80053; 85025

== ENCOUNTER 2017-10-03 08:10 | Outpatient (CLI) | payer MEDICAID, SELFPAY ==
[2017-10-03] VITALS (21 sets, daily range): BP systolic 106–155; BP diastolic 51–78; PULSE 66–78; RESP 18–20; TEMP 36.4–37.1; O2SAT 95–98; BMI 16.6
[2017-10-03 09:29] LABS: Occult Blood,Stool Positive (Negative)
[2017-10-03 15:26] LABS: Hematocrit 32.4 % (37.0-47.0); Hemoglobin 10.5 g/dL (12.2-16.2)
== END 2017-10-03 15:30 | disposition home or self-care (01) ==
LOC: INF 08:22
PROVIDERS: Family Provider Internal Medicine Adolescent Medicine; Visit Provider Nurse Practitioner Family
DX: R19.5 Other fecal abnormalities (principal); D64.9 Anemia, unspecified
CPT/HCPCS: 36430; 82272; 85014; 85018; 86850; G0328; P9016

== ENCOUNTER 2017-10-06 08:30 | Outpatient (CLI) | payer MEDICAID, SELFPAY ==
[2017-10-06] VITALS (20 sets, daily range): BP systolic 102–125; BP diastolic 51–78; PULSE 66–678; RESP 18–72; TEMP 36.3–37.1; O2SAT 95–98; BMI 16.6
[2017-10-06 08:53] LABS: Basophils % 0.3 % (0.1-2.0); Eosinophils % 0.3 % (0.1-12.0); Lymphocytes # 0.9 K/mm3 (0.7-4.5); Lymphocytes % 12.4 K/mm3 (10-50); Mean Corpuscular HGB Conc 31.2 g/dL (31.8-35.4); Mean Corpuscular Hemoglobin 27.3 pg (27.0-31.2); Mean Corpuscular Volume 87.5 fl (81-99); Mean Platelet Volume 7.7 fl (7.4-10.4); Monocytes # 0.3 K/mm3 (0.1-1.0); Monocytes % 4.5 % (1.7-9.3); Neutrophils % 82.5 % (37.0-80.0); Platelet Count 427 K/mm3 (142-424); Red Blood Count 2.29 M/mm3 (4.20-5.40); Red Cell Distribution Width 16.9 % (11.5-17.5); White Blood Count 7.3 K/mm3 (4.8-10.8)
[2017-10-06 08:56] LABS: Hemoglobin 6.3 g/dL (12.2-16.2)
[2017-10-06 08:57] LABS: Hematocrit 20.1 % (37.0-47.0)
[2017-10-06 09:09] LABS: Alanine Aminotransferase 45 U/L (12-78); Albumin Level 1.4 gm/dL (3.4-5.0); Albumin/Globulin Ratio 0.4 (1.1-1.8); Alkaline Phosphatase 84 U/L (46-116); Anion Gap 11.9 mEq/L (5-15); Aspartate Amino Transferase 30 U/L (15-37); Bilirubin,Total 0.2 mg/dL (0.2-1.0); Blood Urea Nitrogen 28 mg/dL (7-18); Calcium 7.7 mg/dL (8.5-10.1); Carbon Dioxide 26 mmol/L (21.0-32.0); Chloride 108 mmol/L (98-107); Creatinine Clearance Estimated 38 mL/min (0-300); Creatinine,Serum 0.68 mg/dL (0.55-1.02); Estimated Glomerular Filt Rate 87 ml/min (>60); GFR (African American) 105 ML/MIN (>60); Globulin 3.7 gm/dl (1.3-3.2); Glucose 142 mg/dL (74-106); Sodium 143 mmol/L (136-145); Total Protein,Serum 5.1 gm/dL (6.4-8.2)
[2017-10-06 09:15] LABS: Potassium 2.9 mmoL/L (3.5-5.1)
[2017-10-06 16:57] LABS: Hematocrit 28.3 % (37.0-47.0)
[2017-10-06 17:02] LABS: Hemoglobin 9.4 g/dL (12.2-16.2)
== END 2017-10-06 16:15 | disposition home or self-care (01) ==
LOC: INF 16:46
PROVIDERS: Family Provider Internal Medicine Adolescent Medicine; Visit Provider Nurse Practitioner Family
DX: D64.9 Anemia, unspecified (principal)
CPT/HCPCS: 36430; 80053; 85014; 85018; 85025; 86850; P9016

== ENCOUNTER 2017-10-07 08:00 | Outpatient (CLI) | payer MEDICAID, SELFPAY ==
[2017-10-07 08:20] VITALS: BMI 16.2
[2017-10-07 08:51] LABS: Basophils % 0.2 % (0.1-2.0); Eosinophils % 0.5 % (0.1-12.0); Hematocrit 31.3 % (37.0-47.0); Lymphocytes # 0.8 K/mm3 (0.7-4.5); Lymphocytes % 10.3 K/mm3 (10-50); Mean Corpuscular HGB Conc 31.8 g/dL (31.8-35.4); Mean Corpuscular Hemoglobin 28.2 pg (27.0-31.2); Mean Corpuscular Volume 88.6 fl (81-99); Mean Platelet Volume 7.9 fl (7.4-10.4); Monocytes # 0.3 K/mm3 (0.1-1.0); Monocytes % 4.2 % (1.7-9.3); Neutrophils # 6.7 K/mm3 (1.8-7.8); Neutrophils % 84.7 % (37.0-80.0); Platelet Count 416 K/mm3 (142-424); Red Blood Count 3.53 M/mm3 (4.20-5.40); Red Cell Distribution Width 15.7 % (11.5-17.5); White Blood Count 7.9 K/mm3 (4.8-10.8)
[2017-10-07 08:56] LABS: Activated Partial Thrombo Time 27.1 seconds (23.6-34.0); INR 1.15 (0.9-1.1); Prothrombin Time 12.4 seconds (9.4-11.8)
[2017-10-07 09:04] LABS: Alanine Aminotransferase 55 U/L (12-78); Albumin Level 1.6 gm/dL (3.4-5.0); Albumin/Globulin Ratio 0.4 (1.1-1.8); Alkaline Phosphatase 95 U/L (46-116); Anion Gap 11.6 mEq/L (5-15); Aspartate Amino Transferase 35 U/L (15-37); Bilirubin,Total 0.5 mg/dL (0.2-1.0); Blood Urea Nitrogen 21 mg/dL (7-18); Calcium 8.3 mg/dL (8.5-10.1); Carbon Dioxide 26 mmol/L (21.0-32.0); Chloride 106 mmol/L (98-107); Creatinine Clearance Estimated 38 mL/min (0-300); Creatinine,Serum 0.63 mg/dL (0.55-1.02); Estimated Glomerular Filt Rate 95 ml/min (>60); GFR (African American) 115 ML/MIN (>60); Globulin 4.1 gm/dl (1.3-3.2); Glucose 135 mg/dL (74-106); Potassium 3.6 mmoL/L (3.5-5.1); Sodium 140 mmol/L (136-145); Total Protein,Serum 5.7 gm/dL (6.4-8.2)
[2017-10-07 09:18] LABS: Appearance,Urine CLEAR (Clear); Bilirubin,Urine Negative (Negative); Blood, Urine 1+ (Negative); Color,Urine YELLOW (Yellow); Glucose,Urine (UA) Negative (Negative); Ketones,Urine Negative (Negative); Leukocyte Esterase,Urine Negative (Negative); Microscopic, Urine URINE MICROSCOPIC (MICROSCOPIC); Nitrate,Urine Negative (Negative); Protein,Urine Negative (Negative); Specific Gravity, Urine >= 1.030 (1.005-1.030); Urobilinogen,Urine 0.2 EU/dl (0.2)
[2017-10-07 09:35] VITALS: BP 112/72; PULSE 68; RESP 20; TEMP 37.1; O2SAT 96
[2017-10-07 09:37] LABS: Bacteria,Urine Trace /lpf
--- NOTE | 2017-10-07 16:15 | PC.NURSE ---
PT ARRVED THIS AM 0800- LABS WERE DRAWN PER ORDER; LAB RESULTS WERE CALLED TO [facility]; ALL LABS WERE OK'D PER TIMBER CRUISER AND PATIENT WAS DISCHARGED HOME AFTER THAT; FAMILY WAS AT SIDE WITH PATIENT; PT STATED THAT SHE FELT VERY GOOD THIS AM AND DENIED SOB; PAIN; OR ANY OTHER ISSUES; PT WILL SEE ONCOLOGY IN THE CLINIC TOMORROW; PT WILL RETURN TO INFUSION ON FRIDAY FOR MORE BLOOD WORK INSTRUCTED PATIENT TO CALL SOONER OR COME IN IF THERE IS ANY CHANGES IN THE PATIENT CONDTION
== END 2017-10-07 09:30 | disposition home or self-care (01) ==
LOC: INF 09:27
PROVIDERS: Family Provider Internal Medicine Adolescent Medicine; Visit Provider Nurse Practitioner Family
DX: D64.9 Anemia, unspecified (principal)
CPT/HCPCS: 80053; 81001; 85025; 85610; 85730; 87086; 87088; 87186

== ENCOUNTER 2017-10-10 08:45 | Outpatient (CLI) | payer MEDICAID, SELFPAY ==
[2017-10-10 08:47] VITALS: BMI 16.1
[2017-10-10 09:07] LABS: Basophils % 0.3 % (0.1-2.0); Eosinophils % 0.3 % (0.1-12.0); Hematocrit 30.6 % (37.0-47.0); Hemoglobin 9.7 g/dL (12.2-16.2); Lymphocytes # 0.7 K/mm3 (0.7-4.5); Lymphocytes % 8.7 K/mm3 (10-50); Mean Corpuscular HGB Conc 31.5 g/dL (31.8-35.4); Mean Corpuscular Hemoglobin 28.5 pg (27.0-31.2); Mean Corpuscular Volume 90.2 fl (81-99); Mean Platelet Volume 7.2 fl (7.4-10.4); Monocytes # 0.4 K/mm3 (0.1-1.0); Neutrophils # 6.8 K/mm3 (1.8-7.8); Neutrophils % 85.7 % (37.0-80.0); Platelet Count 573 K/mm3 (142-424); Red Cell Distribution Width 15.5 % (11.5-17.5)
[2017-10-10 09:09] LABS: MANUAL DIFFERENTIAL MANUAL DIFFERENTIAL (MANUAL DIFF)
[2017-10-10 09:15] VITALS: BP 122/78; PULSE 68; RESP 20; TEMP 36.6; O2SAT 96
[2017-10-10 09:20] LABS: Alanine Aminotransferase 62 U/L (12-78); Albumin Level 1.7 gm/dL (3.4-5.0); Albumin/Globulin Ratio 0.4 (1.1-1.8); Alkaline Phosphatase 118 U/L (46-116); Anion Gap 10.6 mEq/L (5-15); Aspartate Amino Transferase 27 U/L (15-37); Bilirubin,Total 0.3 mg/dL (0.2-1.0); Blood Urea Nitrogen 9 mg/dL (7-18); Calcium 9.1 mg/dL (8.5-10.1); Carbon Dioxide 28 mmol/L (21.0-32.0); Chloride 103 mmol/L (98-107); Creatinine Clearance Estimated 38 mL/min (0-300); Creatinine,Serum 0.67 mg/dL (0.55-1.02); Estimated Glomerular Filt Rate 89 ml/min (>60); GFR (African American) 107 ML/MIN (>60); Globulin 4.5 gm/dl (1.3-3.2); Glucose 107 mg/dL (74-106); Potassium 3.6 mmoL/L (3.5-5.1); Sodium 138 mmol/L (136-145); Total Protein,Serum 6.2 gm/dL (6.4-8.2)
[2017-10-10 09:45] VITALS: BP 122/70; PULSE 68; RESP 20; TEMP 37.1; O2SAT 98
[2017-10-10 09:46] LABS: Lymphocytes % 13 % (10-50); Monocytes % 5 % (2-9); Neutrophils % 82 % (42-76); Platelet Estimate Slight Increase; RBC Morphology Normal; Total Cells Counted 100
[2017-10-11 08:26] LABS: Iron 11 ug/dL (27-139); UIBC 202 ug/dL (118-369)
[2017-10-11 18:30] LABS: Iron Saturation 5 % (15-55)
== END 2017-10-10 09:45 | disposition home or self-care (01) ==
LOC: INF 08:45
PROVIDERS: Family Provider Internal Medicine Adolescent Medicine; PCP Nurse Practitioner Family; Visit Provider Nurse Practitioner Family
DX: D64.9 Anemia, unspecified (principal); E87.6 Hypokalemia
CPT/HCPCS: 80053; 83550; 85007; 85025; 96365

== ENCOUNTER → 2017-10-16 08:06 | Outpatient (CLI) | payer MEDICAID, SELFPAY ==
[2017-10-16 08:55] LABS: Activated Partial Thrombo Time 33.6 seconds (23.6-34.0); INR 1.18 (0.9-1.1); Prothrombin Time 12.8 seconds (9.4-11.8)
[2017-10-16 08:58] LABS: Alanine Aminotransferase 69 U/L (12-78); Albumin Level 1.8 gm/dL (3.4-5.0); Albumin/Globulin Ratio 0.3 (1.1-1.8); Alkaline Phosphatase 162 U/L (46-116); Anion Gap 14.4 mEq/L (5-15); Aspartate Amino Transferase 29 U/L (15-37); Bilirubin,Total 0.3 mg/dL (0.2-1.0); Blood Urea Nitrogen 10 mg/dL (7-18); Calcium 9.7 mg/dL (8.5-10.1); Carbon Dioxide 25 mmol/L (21.0-32.0); Chloride 98 mmol/L (98-107); Estimated Glomerular Filt Rate 72 ml/min (>60); GFR (African American) 87 ML/MIN (>60); Globulin 5.2 gm/dl (1.3-3.2); Glucose 139 mg/dL (74-106); Potassium 3.4 mmoL/L (3.5-5.1); Sodium 134 mmol/L (136-145)
[2017-10-16 11:51] LABS: Basophils % 0.2 % (0.1-2.0); Eosinophils % 0.5 % (0.1-12.0); Hematocrit 32.7 % (37.0-47.0); Lymphocytes # 0.7 K/mm3 (0.7-4.5); Mean Corpuscular HGB Conc 30.7 g/dL (31.8-35.4); Mean Corpuscular Hemoglobin 27.2 pg (27.0-31.2); Mean Corpuscular Volume 88.8 fl (81-99); Mean Platelet Volume 7.6 fl (7.4-10.4); Monocytes # 0.4 K/mm3 (0.1-1.0); Monocytes % 4.8 % (1.7-9.3); Neutrophils # 7.6 K/mm3 (1.8-7.8); Neutrophils % 86.7 % (37.0-80.0); Platelet Count 768 K/mm3 (142-424); Red Blood Count 3.69 M/mm3 (4.20-5.40); White Blood Count 8.7 K/mm3 (4.8-10.8)
[2017-10-16 11:55] LABS: MANUAL DIFFERENTIAL MANUAL DIFFERENTIAL (MANUAL DIFF)
[2017-10-16 12:17] LABS: Lymphocytes % 4 % (10-50); Monocytes % 5 % (2-9); Neutrophils % 91 % (42-76); Platelet Estimate Marked Increase; Total Cells Counted 100
[2017-10-16 12:18] LABS: RBC Morphology Normal
== END ==
PROVIDERS: Visit Provider Nurse Practitioner
DX: R91.8 Other nonspecific abnormal finding of lung field (principal)
CPT/HCPCS: 36415; 80053; 85007; 85025; 85610; 85730

== ENCOUNTER 2017-10-17 09:09 | Inpatient (IN) ==
--- NOTE | 2017-10-17 14:12 | Consult Report ---
*Admission Date: 10/17/17 *Chief complaint: right pneumothorax *History of present illness: This is a 62-year-old female with a right upper lobe mass status post biopsy earlier today. She developed significant post-procedure coughing. Follow-up chest x-ray revealed a fairly large pneumothorax. Review of Systems - Constitutional Denies body ache(s) - Eyes Denies change in vision - *Cardiovascular Denies chest pain - *Respiratory Reports cough - *Gastrointestinal Denies abdominal pain [facility] History Medical History: Reports:: Anxiety, Hyperlipidemia, Hypertension Denies:: Diabetes Mellitus Type 1, Diabetes Mellitus Type 2, Seizures Other Medical History: Denies: Blood Transfusion Reaction Other Surgeries: Yes: Cardiac Catheterization Amputation: No Fractures: No - *Social History Smoking Status: Current every day smoker Tobacco Type: cigarettes # Packs/Day (cigarettes): 1 Alcohol Intake: never Occupational Status: employed - Psychiatric History Pschychiatric History:: Reports:: Anxiety *Family Hx:: Heart Attack Meds Home Medications Medication Instructions Recorded Confirmed Type Atorvastatin Calcium [Atorvastatin 20 mg PO DAILY 09/29/17 10/17/17 History 20mg Tab] Cholecalciferol (Vitamin D3) 1 cap PO WEEKLY 09/29/17 10/17/17 History [Vitamin D3 50,000 unit Cap] Fluticasone/Vilanterol [Breo 1 spray IH DIRECTED 09/29/17 10/17/17 History Ellipta 100-25 Mcg INH] Lisinopril [Lisinopril 10mg Tab] 10 mg PO DAILY 09/29/17 10/17/17 History Pantoprazole Sodium [Protonix 40mg 40 mg PO BID 10/06/17 10/17/17 History tablet] Sucralfate [Carafate 1gm Tab] 1 gm PO ACHS 10/06/17 10/17/17 History fluticasone 100 mcg-vilanterol 25 1 inh INHALATION Q24H 10/08/17 10/17/17 History mcg/dose powder for inhalation hydroxyzine pamoate 25 mg capsule 25 mg PO BID PRN cap 10/08/17 10/17/17 History mirtazapine 15 mg tablet 15 mg PO QHS 10/08/17 10/17/17 History Allergies Allergy/AdvReac Type Severity Reaction Status Date / Time acetaminophen Allergy Mild Rash Verified 10/08/17 11:53 Exam - Constitutional no acute distress - *Routine Respiratory Exam Absent: respiratory distress - *Routine Cardiovascular Exam Present: RRR - *Routine Abdominal Exam Present: soft Assessment and Plan (1) Pneumothorax, right Current visit: Yes Status: Acute Category: Surgical Code(s): J93.9 - Pneumothorax, unspecified Right thoracostomy tube placement - I have discussed the risks and benefits and she agrees to proceed.
--- NOTE | 2017-10-17 14:15 | Operative Note ---
Date of procedure: 10/17/17 Pre-op Diagnosis:: Right pneumothorax status post biopsy of upper lobe mass Post-op Diagnosis:: Same Procedure performed:: Right thoracostomy tube placement (24 Marshallese) Surgeon:: Raffaele Freeman MD Anesthesia: local Estimated blood loss (mL): 1 Operative findings:: Tube anchored at 13 cm Moderate "air mckeon" Operative note:: After informed consent was obtained, the patient was maintained in the supine position. The right chest was prepped and draped in a sterile fashion. After infiltration with local anesthetic small transverse incision was made below the 6 interspace along the anterior axillary line. Blunt dissection was utilized to enter the pleural space over the rib. The 24 Marshallese chest tube was placed in position and secured with interrupted Nurolon. The tube was anchored at 13 cm and connected to the Pleur-evac. A moderate "error mckeon" was noted. Dressings were applied. X-ray is pending. Condition: stable Disposition: no change Complications:: No immediate
--- NOTE | 2017-10-18 08:34 | Progress Note ---
Subjective Patient reports: no new complaints Exam Vital signs and Labs for Last 24 Hours: Temp Pulse Resp BP Pulse Ox 98.5 F 64 16 134/65 99 10/18/17 07:43 10/18/17 07:43 10/18/17 07:43 10/18/17 07:43 10/18/17 07:43 I & O for Last 24 hours: Intake & Output 10/15/17 10/16/17 10/17/17 10/18/17 11:59 11:59 11:59 11:59 Intake Total 250 / 250 Output Total 850 / 850 Balance -600 / -600 Weight 82 lb 4 oz - Constitutional no acute distress - *Routine Respiratory Exam Absent: respiratory distress Comments: small air leak Progress Note: A&P (1) Pneumothorax, right Status: Acute Assessment and plan: small air leak this AM serial CXR continue chest tube to suction for now Current Visit: Yes
--- NOTE | 2017-10-18 09:33 | History & Physical Report ---
*Admission Date: 10/17/17 *Chief complaint: Pneumothorax post lung biopsy *History of present illness: This is a 62-year-old female with a right upper lobe mass status post biopsy earlier today. She developed significant post-procedure coughing. Follow-up chest x-ray revealed a fairly large pneumothorax. Given her oxygen requirement , degree of pneumothorax and overall tenuous medical situation she was admitted to hospital for oxygen therapy, surgical consultation and follow-up chest x- rays. [facility] History Medical History: Reports:: Anxiety, Hyperlipidemia, Hypertension, Lung Disease ( Recently diagnosed lung mass, COPD) Denies:: Cancer, Diabetes Mellitus Type 1, Diabetes Mellitus Type 2, MRSA, Seizures Other Medical History: Reports: Anemia (Multiple transfusions). Denies: Blood Transfusion Reaction Other Surgeries: Yes: Cardiac Catheterization Amputation: No Fractures: No - *Social History Educational Level: Attended Grade School Smoking Status: Current every day smoker Tobacco Type: cigarettes # Packs/Day (cigarettes): 1 #Yrs smoked (if former smoker): 50 Alcohol Intake: never Occupational Status: employed Housing: house Household Members: none - Psychiatric History Expresses thoughts of harming self/others: None Suicide Plan Description: No Plan Pschychiatric History:: Reports:: Anxiety *Family Hx:: Heart Attack Review of Systems - Review of Systems Review of systems:: unable to obtain, other, pertinent systems reviewed and negative unless documented below - Constitutional Reports lack of energy, Reports malaise - *Cardiovascular Reports shortness of breath, Reports shortness of breath with activity, Denies chest pain, Denies chest pain at rest, Denies irregular heart rhythm, Denies leg swelling - *Respiratory Reports cough, Reports shortness of breath, Reports shortness of breath with activity, Denies change in phlegm color, Denies chest congestion, Denies coughing up blood - *Gastrointestinal Denies abdominal pain, Denies belching Meds Home Medications Medication Instructions Recorded Confirmed Type Atorvastatin Calcium [Atorvastatin 20 mg PO DAILY 09/29/17 10/17/17 History 20mg Tab] Cholecalciferol (Vitamin D3) 1 cap PO WEEKLY 09/29/17 10/17/17 History [Vitamin D3 50,000 unit Cap] Fluticasone/Vilanterol [Breo 1 spray IH DIRECTED 09/29/17 10/17/17 History Ellipta 100-25 Mcg INH] Lisinopril [Lisinopril 10mg Tab] 10 mg PO DAILY 09/29/17 10/17/17 History Pantoprazole Sodium [Protonix 40mg 40 mg PO BID 10/06/17 10/17/17 History tablet] Sucralfate [Carafate 1gm Tab] 1 gm PO ACHS 10/06/17 10/17/17 History fluticasone 100 mcg-vilanterol 25 1 inh INHALATION Q24H 10/08/17 10/17/17 History mcg/dose powder for inhalation hydroxyzine pamoate 25 mg capsule 25 mg PO BID PRN cap 10/08/17 10/17/17 History mirtazapine 15 mg tablet 15 mg PO QHS 10/08/17 10/17/17 History Allergies Allergy/AdvReac Type Severity Reaction Status Date / Time acetaminophen Allergy Mild Rash Verified 10/08/17 11:53 Exam Vital signs and Labs for Last 24 Hours: Temp Pulse Resp BP Pulse Ox 98.5 F 64 16 134/65 99 10/18/17 07:43 10/18/17 07:43 10/18/17 07:43 10/18/17 07:43 10/18/17 07:43 I & O for Last 24 hours: Intake & Output 10/15/17 10/16/17 10/17/17 10/18/17 11:59 11:59 11:59 11:59 Intake Total 250 / 250 Output Total 850 / 850 Balance -600 / -600 Weight 82 lb 4 oz Narrative: Pleasant, cachectic and appears chronically and acutely ill. Appears older than her stated age. Lungs with diminished air movement on the right consistent with her known lung mass and pneumothorax. Pulses, no edema. Heart rate regular. No tracheal deviation. Assessment and Plan (1) Pneumothorax, right Current visit: Yes Status: Acute Category: Surgical Code(s): J93.9 - Pneumothorax, unspecified - Assessment and plan all Dx Assessment and Plan for all problems:: Admit to hospital, surgical consultation for chest tube, oxygen therapy, pain control as needed.
--- NOTE | 2017-10-18 10:11 | Progress Note ---
Internal Medicine - PN: Subj *Date: 10/18/17 *Time: 10:10 Interval history: Patient's pleasant. Complains only of pain from the tape around her chest tube. Exam Vital signs and Labs for Last 24 Hours: Temp Pulse Resp BP Pulse Ox 98.5 F 64 16 134/65 99 10/18/17 07:43 10/18/17 07:43 10/18/17 07:43 10/18/17 07:43 10/18/17 07:43 I & O for Last 24 hours: Intake & Output 10/15/17 10/16/17 10/17/17 10/18/17 11:59 11:59 11:59 11:59 Intake Total 250 / 250 Output Total 850 / 850 Balance -600 / -600 Weight 82 lb 4 oz Narrative: Patient is pleasant. Oriented, alert. Heart rate regular. Lung verdugo are fairly clear in the left side. Diminished air movement on the right consistent with her known diagnosis of tumor and pneumothorax. No problems with perfusion in her feet or hands. Assessment and Plan (1) Pneumothorax, right Current visit: Yes Status: Acute Category: Surgical Code(s): J93.9 - Pneumothorax, unspecified - Assessment and plan all Dx Assessment and Plan for all problems:: Appreciate surgical notes. Continue monitoring.
--- NOTE | 2017-10-18 11:08 | Pharmacy Consult Notes ---
[facility] Pharmacy VTE Monitoring - Patient Demographics Admission date: 10/17/17 Report Date: 10/18/17 Time: 11:08 Allergies/Adverse Reactions: Patient Allergies acetaminophen Allergy (Mild, Verified 10/08/17 11:53) Rash Height: 1.6 m Weight: 37.308 kg Patient Problems: Current Active Problems Pneumothorax, right (Acute) - VTE Risk Was VTE Risk Assessment Performed: No VTE Score: 2 VTE Risk Level: Low Risk - Prophylaxis VTE Prophylaxis Ordered?: Yes Types of VTE Prophylaxis: TEDS Knee High Location of Applied Device: Bilateral Lower Extremeties - VTE Diagnosis Confirmed Treatment or plan recommended: Continue Current Treatment
--- NOTE | 2017-10-19 08:49 | Progress Note ---
Subjective Patient reports: no new complaints Exam Vital signs and Labs for Last 24 Hours: Temp Pulse Resp BP Pulse Ox 98.3 F 66 20 101/46 100 10/19/17 07:35 10/19/17 07:35 10/19/17 07:35 10/19/17 07:35 10/19/17 07:35 I & O for Last 24 hours: Intake & Output 10/16/17 10/17/17 10/18/17 10/19/17 11:59 11:59 11:59 11:59 Intake Total 250 / 250 1040 / 1040 Output Total 850 / 850 Balance -600 / -600 1040 / 1040 Weight 82 lb 4 oz - Constitutional no acute distress - *Routine Respiratory Exam Absent: respiratory distress Comments: no air leak Progress Note: A&P (1) Pneumothorax, right Status: Acute Assessment and plan: No air leak this AM. Tiny residual PTX noted on AM film. Place to water seal. CXR this afternoon. Current Visit: Yes
--- NOTE | 2017-10-20 07:49 | Progress Note ---
Subjective Patient reports: no new complaints Exam Vital signs and Labs for Last 24 Hours: Temp Pulse Resp BP Pulse Ox 97.3 F L 64 22 143/60 100 10/20/17 04:23 10/20/17 04:23 10/20/17 04:23 10/20/17 04:23 10/20/17 04:23 I & O for Last 24 hours: Intake & Output 10/17/17 10/18/17 10/19/17 10/20/17 11:59 11:59 11:59 11:59 Intake Total 250 / 250 1040 / 1040 600 / 600 Output Total 850 / 850 960 / 960 Balance -600 / -600 1040 / 1040 -360 / -360 Weight 82 lb 4 oz - Constitutional no acute distress - *Routine Respiratory Exam Comments: moderate retained air pocket when placed to suction...tiny persistent leak. Progress Note: A&P (1) Pneumothorax, right Status: Acute Assessment and plan: Fairly small persistent apical pneumothorax noted radiographically. The patient is without symptoms. Placing the suction revealed a moderate retained amount of air with a tiny persistent ongoing leak with cough. Fairly significant "swing" still noted. The patient has been placed back to suction. Current Visit: Yes
--- NOTE | 2017-10-20 08:10 | Progress Note ---
Internal Medicine - PN: Subj *Date: 10/20/17 *Time: 08:09 Interval history: Patient is in good spirits, had to be transferred back to suction with some mild air leak today. Denies pain, however. Exam Vital signs and Labs for Last 24 Hours: Temp Pulse Resp BP Pulse Ox 97.7 F 60 18 120/69 100 10/20/17 07:48 10/20/17 07:48 10/20/17 07:48 10/20/17 07:48 10/20/17 07:48 I & O for Last 24 hours: Intake & Output 10/17/17 10/18/17 10/19/17 10/20/17 11:59 11:59 11:59 11:59 Intake Total 250 / 250 1040 / 1040 840 / 840 Output Total 850 / 850 960 / 960 Balance -600 / -600 1040 / 1040 -120 / -120 Weight 82 lb 4 oz Narrative: Patient is pleasant, alert. Lungs have fairly good air entry. Somewhat compromised air movement on the right. Assessment and Plan (1) Pneumothorax, right Current visit: Yes Status: Acute Category: Surgical Code(s): J93.9 - Pneumothorax, unspecified - Assessment and plan all Dx Assessment and Plan for all problems:: Continue chest tube management per surgery. No changes in plan.
--- NOTE | 2017-10-20 10:17 | Consult Report ---
*Admission Date: 10/17/17 *Chief complaint: shortness of breath *History of present illness: This is a 62-year-old female with a right upper lobe mass status post biopsy earlier today. She developed significant post-procedure coughing. Follow-up chest x-ray revealed a fairly large pneumothorax. Given her oxygen requirement , degree of pneumothorax and overall tenuous medical situation she was admitted to hospital for oxygen therapy, surgical consultation and follow-up chest x- rays. [facility] History Medical History: Reports:: Anxiety, Hyperlipidemia, Hypertension, Lung Disease ( Recently diagnosed lung mass, COPD) Denies:: Cancer, Diabetes Mellitus Type 1, Diabetes Mellitus Type 2, MRSA, Seizures Other Medical History: Reports: Anemia (Multiple transfusions). Denies: Blood Transfusion Reaction Other Surgeries: Yes: Cardiac Catheterization Amputation: No Fractures: No - *Social History Educational Level: Attended Grade School Smoking Status: Current every day smoker Tobacco Type: cigarettes # Packs/Day (cigarettes): 1 #Yrs smoked (if former smoker): 50 Alcohol Intake: never Occupational Status: employed Housing: house Household Members: none - Psychiatric History Expresses thoughts of harming self/others: None Suicide Plan Description: No Plan Pschychiatric History:: Reports:: Anxiety *Family Hx:: Heart Attack Meds Home Medications Medication Instructions Recorded Confirmed Type Atorvastatin Calcium [Atorvastatin 20 mg PO DAILY 09/29/17 10/17/17 History 20mg Tab] Cholecalciferol (Vitamin D3) 1 cap PO WEEKLY 09/29/17 10/17/17 History [Vitamin D3 50,000 unit Cap] Lisinopril [Lisinopril 10mg Tab] 10 mg PO DAILY 09/29/17 10/17/17 History Pantoprazole Sodium [Protonix 40mg 40 mg PO BID 10/06/17 10/17/17 History tablet] Sucralfate [Carafate 1gm Tab] 1 gm PO ACHS 10/06/17 10/17/17 History fluticasone 100 mcg-vilanterol 25 1 puff INHALATION DAILY 10/08/17 10/18/17 History mcg/dose powder for inhalation hydroxyzine pamoate 25 mg capsule 25 mg PO BID PRN cap 10/08/17 10/17/17 History mirtazapine 15 mg tablet 7.5 mg PO QHS 10/08/17 10/18/17 History Potassium Chloride [Klor-con 20 20 meq PO BID 10/18/17 10/18/17 History mEq tablet] Allergies Allergy/AdvReac Type Severity Reaction Status Date / Time acetaminophen Allergy Mild Rash Verified 10/08/17 11:53 Exam Vital signs and Labs for Last 24 Hours: Temp Pulse Resp BP Pulse Ox 97.7 F 60 18 120/69 100 10/20/17 07:48 10/20/17 07:48 10/20/17 07:48 10/20/17 07:48 10/20/17 07:48 I & O for Last 24 hours: Intake & Output 10/17/17 10/18/17 10/19/17 10/20/17 23:59 23:59 23:59 23:59 Intake Total 240 / 240 810 / 810 840 / 840 240 / 240 Output Total 850 / 850 960 / 960 Balance 240 / 240 -40 / -40 -120 / -120 240 / 240 Weight 82 lb 4 oz 82 lb 4 oz Assessment and Plan (1) Pneumothorax, right Current visit: Yes Status: Acute Category: Surgical Code(s): J93.9 - Pneumothorax, unspecified
[2017-10-21 07:58] LABS: Basophils % 0.3 % (0.1-2.0); Eosinophils # 0.1 K/mm3 (0.0-0.4); Eosinophils % 1.3 % (0.1-12.0); Hematocrit 29.2 % (37.0-47.0); Hemoglobin 9.1 g/dL (12.2-16.2); Lymphocytes % 15.3 K/mm3 (10-50); Mean Corpuscular HGB Conc 31.2 g/dL (31.8-35.4); Mean Corpuscular Hemoglobin 27.2 pg (27.0-31.2); Mean Corpuscular Volume 87.1 fl (81-99); Mean Platelet Volume 7.4 fl (7.4-10.4); Monocytes # 0.4 K/mm3 (0.1-1.0); Monocytes % 5.5 % (1.7-9.3); Neutrophils # 5.2 K/mm3 (1.8-7.8); Neutrophils % 77.5 % (37.0-80.0); Platelet Count 585 K/mm3 (142-424); Red Blood Count 3.35 M/mm3 (4.20-5.40); Red Cell Distribution Width 14.6 % (11.5-17.5); White Blood Count 6.7 K/mm3 (4.8-10.8)
[2017-10-21 08:13] LABS: Albumin Level 1.5 gm/dL (3.4-5.0); Albumin/Globulin Ratio 0.3 (1.1-1.8); Bilirubin,Total 0.2 mg/dL (0.2-1.0); Calcium 9.6 mg/dL (8.5-10.1); Globulin 4.8 gm/dl (1.3-3.2); Total Protein,Serum 6.3 gm/dL (6.4-8.2)
--- NOTE | 2017-10-21 08:39 | Progress Note ---
Subjective Patient reports: no new complaints Exam Vital signs and Labs for Last 24 Hours: Temp Pulse Resp BP Pulse Ox 98.1 F 64 18 114/47 100 10/21/17 07:56 10/21/17 07:56 10/21/17 07:56 10/21/17 07:56 10/21/17 07:56 Laboratory Results - last 24 hr 10/21/17 07:50: WBC 6.7, RBC 3.35 L, Hgb 9.1 L, Hct 29.2 L, MCV 87.1, MCH 27.2, MCHC 31.2 L, RDW 14.6, Plt Count 585 H, MPV 7.4, Neut % (Auto) 77.5, Lymph % ( Auto) 15.3, [place] % (Auto) 5.5, Eos % (Auto) 1.3, Baso % (Auto) 0.3, Neut # (Auto ) 5.2, Lymph # (Auto) 1.0, [place] # (Auto) 0.4, Eos # (Auto) 0.1, Baso # (Auto) 0.0 10/21/17 07:50: Sodium 136, Potassium 3.0 L, Chloride 99, Carbon Dioxide 32, Anion Gap 8.0, BUN 23 H, Creatinine 0.69, Estimated Creat Clear 33, Estimated GFR 86, Est GFR ( Amer) 104, Glucose 125 H, Calcium 9.6, Total Bilirubin 0.2, AST 32, ALT 48, Alkaline Phosphatase 141 H, Total Protein 6.3 L, Albumin 1.5 L, Globulin 4.8 H, Albumin/Globulin Ratio 0.3 L I & O for Last 24 hours: Intake & Output 10/18/17 10/19/17 10/20/17 10/21/17 11:59 11:59 11:59 11:59 Intake Total 250 / 250 1040 / 1040 840 / 840 730 / 730 Output Total 850 / 850 960 / 960 1120 / 1120 Balance -600 / -600 1040 / 1040 -120 / -120 -390 / -390 Weight 82 lb 4 oz 82 lb 4.001 oz - Constitutional no acute distress - *Routine Respiratory Exam Absent: respiratory distress Comments: Evaluation on suction in multiple positions reveals no leak. The patient was placed on waterseal with immediate elevation of the water column. She remained asymptomatic. Placement back on suction revealed an initial leak of air that was exacerbated with cough. She was maintained on suction secondary to this finding. Progress Note: A&P (1) Pneumothorax, right Status: Acute Assessment and plan: Although the patient has no radiographic evidence of significant/persistent pneumothorax on suction, she has had radiographic recurrence when placed on water seal. She also has no air leak on suction, but immediately does show signs of recurrence as persistent leak with cough noted when returning to suction after water seal test. Continue suction for now Current Visit: Yes
--- NOTE | 2017-10-21 08:47 | Progress Note ---
Internal Medicine - PN: Subj *Date: 10/21/17 *Time: 07:45 Interval history: Patient has no complaints. Denies shortness of breath. PO intake remains poor. Alert and oriented x3, some confusion. Rate and rhythm regular. LS clear and diminished right> left. Abdomen, soft nontender Exam Vital signs and Labs for Last 24 Hours: Temp Pulse Resp BP Pulse Ox 98.1 F 64 18 114/47 100 10/21/17 07:56 10/21/17 07:56 10/21/17 07:56 10/21/17 07:56 10/21/17 07:56 Laboratory Results - last 24 hr 10/21/17 07:50: WBC 6.7, RBC 3.35 L, Hgb 9.1 L, Hct 29.2 L, MCV 87.1, MCH 27.2, MCHC 31.2 L, RDW 14.6, Plt Count 585 H, MPV 7.4, Neut % (Auto) 77.5, Lymph % ( Auto) 15.3, [place] % (Auto) 5.5, Eos % (Auto) 1.3, Baso % (Auto) 0.3, Neut # (Auto ) 5.2, Lymph # (Auto) 1.0, [place] # (Auto) 0.4, Eos # (Auto) 0.1, Baso # (Auto) 0.0 10/21/17 07:50: Sodium 136, Potassium 3.0 L, Chloride 99, Carbon Dioxide 32, Anion Gap 8.0, BUN 23 H, Creatinine 0.69, Estimated Creat Clear 33, Estimated GFR 86, Est GFR ( Amer) 104, Glucose 125 H, Calcium 9.6, Total Bilirubin 0.2, AST 32, ALT 48, Alkaline Phosphatase 141 H, Total Protein 6.3 L, Albumin 1.5 L, Globulin 4.8 H, Albumin/Globulin Ratio 0.3 L I & O for Last 24 hours: Intake & Output 10/18/17 10/19/17 10/20/17 10/21/17 11:59 11:59 11:59 11:59 Intake Total 250 / 250 1040 / 1040 840 / 840 730 / 730 Output Total 850 / 850 960 / 960 1120 / 1120 Balance -600 / -600 1040 / 1040 -120 / -120 -390 / -390 Weight 82 lb 4 oz 82 lb 4.001 oz Assessment and Plan (1) Pneumothorax, right Current visit: Yes Status: Acute Category: Surgical Code(s): J93.9 - Pneumothorax, unspecified - Assessment and plan all Dx Assessment and Plan for all problems:: Continue chest tube to suction per surgery recommendation. Will obtain labs this morning and treat as indicated.
--- NOTE | 2017-10-22 07:10 | Progress Note ---
Subjective Patient reports: no new complaints Exam Vital signs and Labs for Last 24 Hours: Temp Pulse Resp BP Pulse Ox 98.7 F 72 16 114/46 96 10/22/17 04:00 10/22/17 04:00 10/22/17 04:00 10/22/17 04:00 10/22/17 04:00 Laboratory Results - last 24 hr 10/21/17 07:50: WBC 6.7, RBC 3.35 L, Hgb 9.1 L, Hct 29.2 L, MCV 87.1, MCH 27.2, MCHC 31.2 L, RDW 14.6, Plt Count 585 H, MPV 7.4, Neut % (Auto) 77.5, Lymph % ( Auto) 15.3, [place] % (Auto) 5.5, Eos % (Auto) 1.3, Baso % (Auto) 0.3, Neut # (Auto ) 5.2, Lymph # (Auto) 1.0, [place] # (Auto) 0.4, Eos # (Auto) 0.1, Baso # (Auto) 0.0 10/21/17 07:50: Sodium 136, Potassium 3.0 L, Chloride 99, Carbon Dioxide 32, Anion Gap 8.0, BUN 23 H, Creatinine 0.69, Estimated Creat Clear 33, Estimated GFR 86, Est GFR ( Amer) 104, Glucose 125 H, Calcium 9.6, Total Bilirubin 0.2, AST 32, ALT 48, Alkaline Phosphatase 141 H, Total Protein 6.3 L, Albumin 1.5 L, Globulin 4.8 H, Albumin/Globulin Ratio 0.3 L I & O for Last 24 hours: Intake & Output 10/19/17 10/20/17 10/21/17 10/22/17 11:59 11:59 11:59 11:59 Intake Total 1040 / 1040 840 / 840 730 / 730 500 / 500 Output Total 960 / 960 1120 / 1120 545 / 545 Balance 1040 / 1040 -120 / -120 -390 / -390 -45 / -45 Weight 82 lb 4.001 oz - Constitutional no acute distress - *Routine Respiratory Exam Absent: respiratory distress Comments: 2 tiny bubbles with change of position Progress Note: A&P (1) Pneumothorax, right Status: Acute Assessment and plan: persistent small apical PTX. Extended time on suction. Possible tiny leak, but none noted without extensive positional changes. Will place on water seal and increase O2 CXR at 13:00 Current Visit: Yes
--- NOTE | 2017-10-22 07:15 | Progress Note ---
Internal Medicine - PN: Subj *Date: 10/22/17 *Time: 07:14 Interval history: Overall no changes. Discussed case with surgeons. Exam Vital signs and Labs for Last 24 Hours: Temp Pulse Resp BP Pulse Ox 98.7 F 72 16 114/46 96 10/22/17 04:00 10/22/17 04:00 10/22/17 04:00 10/22/17 04:00 10/22/17 04:00 Laboratory Results - last 24 hr 10/21/17 07:50: WBC 6.7, RBC 3.35 L, Hgb 9.1 L, Hct 29.2 L, MCV 87.1, MCH 27.2, MCHC 31.2 L, RDW 14.6, Plt Count 585 H, MPV 7.4, Neut % (Auto) 77.5, Lymph % ( Auto) 15.3, [place] % (Auto) 5.5, Eos % (Auto) 1.3, Baso % (Auto) 0.3, Neut # (Auto ) 5.2, Lymph # (Auto) 1.0, [place] # (Auto) 0.4, Eos # (Auto) 0.1, Baso # (Auto) 0.0 10/21/17 07:50: Sodium 136, Potassium 3.0 L, Chloride 99, Carbon Dioxide 32, Anion Gap 8.0, BUN 23 H, Creatinine 0.69, Estimated Creat Clear 33, Estimated GFR 86, Est GFR ( Amer) 104, Glucose 125 H, Calcium 9.6, Total Bilirubin 0.2, AST 32, ALT 48, Alkaline Phosphatase 141 H, Total Protein 6.3 L, Albumin 1.5 L, Globulin 4.8 H, Albumin/Globulin Ratio 0.3 L I & O for Last 24 hours: Intake & Output 10/19/17 10/20/17 10/21/17 10/22/17 11:59 11:59 11:59 11:59 Intake Total 1040 / 1040 840 / 840 730 / 730 500 / 500 Output Total 960 / 960 1120 / 1120 545 / 545 Balance 1040 / 1040 -120 / -120 -390 / -390 -45 / -45 Weight 82 lb 4.001 oz Narrative: No change on exam. Minimal changes in the right base. Assessment and Plan (1) Pneumothorax, right Current visit: Yes Status: Acute Category: Surgical Code(s): J93.9 - Pneumothorax, unspecified - Assessment and plan all Dx Assessment and Plan for all problems:: Continue chest tube management. Trial of waterseal with 100% oxygen washout
--- NOTE | 2017-10-23 07:26 | Progress Note ---
Subjective Patient reports: no new complaints Exam Vital signs and Labs for Last 24 Hours: Temp Pulse Resp BP Pulse Ox 98.9 F 65 20 114/67 100 10/23/17 04:00 10/23/17 04:00 10/23/17 04:00 10/23/17 04:00 10/23/17 04:00 I & O for Last 24 hours: Intake & Output 10/20/17 10/21/17 10/22/17 10/23/17 11:59 11:59 11:59 11:59 Intake Total 840 / 840 730 / 730 500 / 500 1451 / 1451 Output Total 960 / 960 1120 / 1120 545 / 545 1000 / 1000 Balance -120 / -120 -390 / -390 -45 / -45 451 / 451 Weight 82 lb 4.001 oz 85 lb 9 oz Radiology Reports for the Last 24 Hours: Chest x-ray this morning reveals a persistent small apical pneumothorax with possible slight increase versus prior evaluation. The increase could be secondary to positional changes. - Constitutional no acute distress - *Routine Respiratory Exam Absent: respiratory distress Comments: Unchanged "swing" noted in tube/pleuravac Progress Note: A&P (1) Pneumothorax, right Status: Acute Assessment and plan: Persistent pneumothorax that essentially disappears on suction. No shortness of air. No significant increase in size on waterseal. Possible small increase , but this could be positional. The chest tube will be placed on a "clamp trial". Although this is atypical, taking the chest tube out of circuit completely prior to possible removal is reasonable. The nursing staff understands the reasoning and rarity of this trial. They are aware of the risk of tension pneumothorax and the treatment plan. Current Visit: Yes
--- NOTE | 2017-10-23 08:14 | Progress Note ---
Internal Medicine - PN: Subj *Date: 10/23/17 *Time: 07:30 Interval history: No complaints. Continues to have poor appetite. No shortness of breath. Alert and oriented x3, some confusion. Rate and rhythm regular. No LE edema. Anterior lung verdugo clear, air movement improved. No crepitus. Abdomen soft nontender Exam Vital signs and Labs for Last 24 Hours: Temp Pulse Resp BP Pulse Ox 98.2 F 65 20 117/49 100 10/23/17 07:37 10/23/17 07:37 10/23/17 04:00 10/23/17 07:37 10/23/17 07:37 I & O for Last 24 hours: Intake & Output 10/20/17 10/21/17 10/22/17 10/23/17 11:59 11:59 11:59 11:59 Intake Total 840 / 840 730 / 730 500 / 500 1451 / 1451 Output Total 960 / 960 1120 / 1120 545 / 545 1000 / 1000 Balance -120 / -120 -390 / -390 -45 / -45 451 / 451 Weight 82 lb 4.001 oz 85 lb 9 oz Assessment and Plan (1) Pneumothorax, right Current visit: Yes Status: Acute Category: Surgical Code(s): J93.9 - Pneumothorax, unspecified - Assessment and plan all Dx Assessment and Plan for all problems:: Patient did well through the night on water seal with no increase in the size of her pneumothorax. Dr. Freeman plans to do a "clamp trial" today. If she tolerates trial, he will consider removing CT last today.
--- NOTE | 2017-10-24 07:31 | Progress Note ---
Subjective Patient reports: no new complaints Exam Vital signs and Labs for Last 24 Hours: Temp Pulse Resp BP Pulse Ox 98.4 F 65 16 122/51 96 10/24/17 04:00 10/24/17 04:00 10/24/17 04:00 10/24/17 04:00 10/24/17 04:00 I & O for Last 24 hours: Intake & Output 10/21/17 10/22/17 10/23/17 10/24/17 11:59 11:59 11:59 11:59 Intake Total 730 / 730 500 / 500 1451 / 1451 740 / 740 Output Total 1120 / 1120 545 / 545 1000 / 1000 Balance -390 / -390 -45 / -45 451 / 451 740 / 740 Weight 82 lb 4.001 oz 85 lb 9 oz - Constitutional no acute distress - *Routine Respiratory Exam Absent: respiratory distress Progress Note: A&P (1) Pneumothorax, right Status: Acute Assessment and plan: No change with regard to chest x-ray or symptoms after 24 hours of "clamp trial ". Remove chest tube Repeat chest x-ray later this afternoon and tomorrow morning Possible discharge home tomorrow morning if chest x-ray remains stable If pneumothorax expands radiographically the patient will continue to have follow-up films. I do not recommend replacement of chest tube unless she becomes symptomatic; however, I do not recommend discharge home unless radiographs remain stable. Current Visit: Yes
--- NOTE | 2017-10-24 08:26 | Progress Note ---
Internal Medicine - PN: Subj *Date: 10/24/17 *Time: 08:25 Interval history: Chest tube pulled this morning. Please see surgical notes. Exam Vital signs and Labs for Last 24 Hours: Temp Pulse Resp BP Pulse Ox 99.2 F 61 18 120/54 97 10/24/17 08:00 10/24/17 08:00 10/24/17 08:00 10/24/17 08:00 10/24/17 08:00 I & O for Last 24 hours: Intake & Output 10/21/17 10/22/17 10/23/17 10/24/17 11:59 11:59 11:59 11:59 Intake Total 730 / 730 500 / 500 1451 / 1451 980 / 980 Output Total 1120 / 1120 545 / 545 1000 / 1000 Balance -390 / -390 -45 / -45 451 / 451 980 / 980 Weight 82 lb 4.001 oz 85 lb 9 oz Narrative: Patient is alert. Pleasant. Wearing nonrebreather mask. Lungs with unchanged air expansion. Assessment and Plan (1) Pneumothorax, right Current visit: Yes Status: Acute Category: Surgical Code(s): J93.9 - Pneumothorax, unspecified - Assessment and plan all Dx Assessment and Plan for all problems:: Agree with surgical notes. Chest x-ray tonight.
--- NOTE | 2017-10-25 08:19 | Progress Note ---
Subjective Patient reports: no new complaints Narrative: Patient feels well. Denies SOA. Only complaint is throat discomfort from oxygen. Exam Vital signs and Labs for Last 24 Hours: Temp Pulse Resp BP Pulse Ox 98.2 F 60 18 122/55 100 10/25/17 08:00 10/25/17 08:00 10/25/17 08:00 10/25/17 08:00 10/25/17 08:00 I & O for Last 24 hours: Intake & Output 10/22/17 10/23/17 10/24/17 10/25/17 11:59 11:59 11:59 11:59 Intake Total 500 / 500 1451 / 1451 980 / 980 730 / 730 Output Total 545 / 545 1000 / 1000 700 / 700 Balance -45 / -45 451 / 451 980 / 980 30 / 30 Weight 85 lb 9 oz Radiology Reports for the Last 24 Hours: CXR reveals stable moderate right apical pneumothorax. - *Routine Respiratory Exam Comments: Diminished breath sounds at right apex Progress Note: A&P (1) Pneumothorax, right Status: Acute Assessment and plan: Continue to monitor for now without intervention. Repeat CXR in am. Current Visit: Yes
--- NOTE | 2017-10-25 08:21 | Progress Note ---
Internal Medicine - PN: Subj *Date: 10/25/17 *Time: 08:20 Interval history: Patient has no complaints, except for oxygen mask causing sore throat and cough. No problems with chest pain. Exam Vital signs and Labs for Last 24 Hours: Temp Pulse Resp BP Pulse Ox 98.2 F 60 18 122/55 100 10/25/17 08:00 10/25/17 08:00 10/25/17 08:00 10/25/17 08:00 10/25/17 08:00 I & O for Last 24 hours: Intake & Output 10/22/17 10/23/17 10/24/17 10/25/17 11:59 11:59 11:59 11:59 Intake Total 500 / 500 1451 / 1451 980 / 980 730 / 730 Output Total 545 / 545 1000 / 1000 700 / 700 Balance -45 / -45 451 / 451 980 / 980 30 / 30 Weight 85 lb 9 oz Narrative: In no respiratory distress, no major changes in lung exam. Alert, oriented. Assessment and Plan (1) Pneumothorax, right Current visit: Yes Status: Acute Category: Surgical Code(s): J93.9 - Pneumothorax, unspecified - Assessment and plan all Dx Assessment and Plan for all problems:: Repeat chest x-ray tomorrow, if stable would consider discharge home. Patient currently in workup for lung cancer, has seen oncology, they wish CT scan of head, in order to facilitate her diagnostic workup we will get this while in the hospital this weekend.
--- NOTE | 2017-10-26 07:50 | Progress Note ---
Subjective Patient reports: feels better Narrative: Denies respiratory complaints. Exam Vital signs and Labs for Last 24 Hours: Temp Pulse Resp BP Pulse Ox 98.8 F 67 18 122/54 90 L 10/26/17 04:00 10/26/17 04:00 10/26/17 04:00 10/26/17 04:00 10/26/17 04:00 I & O for Last 24 hours: Intake & Output 10/23/17 10/24/17 10/25/17 10/26/17 11:59 11:59 11:59 11:59 Intake Total 1451 / 1451 980 / 980 730 / 730 620 / 620 Output Total 1000 / 1000 700 / 700 1350 / 1350 Balance 451 / 451 980 / 980 -730 / -730 Radiology Reports for the Last 24 Hours: CT Head reveals no metastatic disease. CXR result pending but appears to show stable to smaller pneumothorax. - *Routine Respiratory Exam Present: distant breath sounds Comments: Good air movement. Diminished breath sounds right apex. Progress Note: A&P (1) Pneumothorax, right Status: Acute Assessment and plan: CXR report pending but appears stable to smaller pneumothorax. Possible DC home today with close followup Current Visit: Yes
[2017-10-26 07:59] VITALS: BP 133/60
--- NOTE | 2017-10-26 08:25 | Discharge Summary ---
General - General Admission date: 10/17/17 Discharge date: 10/26/17 HPI HPI: This is a 62-year-old female with a right upper lobe mass status post biopsy earlier today. She developed significant post-procedure coughing. Follow-up chest x-ray revealed a fairly large pneumothorax. Given her oxygen requirement , degree of pneumothorax and overall tenuous medical situation she was admitted to hospital for oxygen therapy, surgical consultation and follow-up chest x- rays. Hospital Course Hospital Course: Patient was admitted, surgery was consulted because of need for chest tube and this was placed without much trouble, unfortunately, she had problems over the next 48 hours with transition to waterseal with continuing air leak and had to be placed back on suction a couple of different times. The decision was finally made to keep her on waterseal for a couple of days to see if the pneumothorax would stabilize and it did and the patient was very asymptomatic. Chest tubes pulled yesterday, she was watched again today. Her pneumothorax remains small and apical with no change, she is asymptomatic. Her exam is essentially unremarkable except for slightly diminished air movement in the right lung but this is probably from the presence of her large cancer. Plan will be to discharge home today. Short-term follow-up with a chest x-ray tomorrow, I will see her in my office in 3 days, she has an appointment with oncology for November 03. Objective Vital signs: Temp Pulse Resp BP Pulse Ox 98.3 F 64 16 133/60 92 L 10/26/17 07:58 10/26/17 07:58 10/26/17 07:58 10/26/17 07:58 10/26/17 07:58 Narrative: Appears cachectic, chronically ill, alert, oriented without pain or dyspnea. Lungs have fairly good air expansion, slightly reduced air movement in the right middle lung field, but this is at her baseline. No tracheal deviation, no tachypnea. Heart rate regular. No edema, no clubbing, no rash. DS: Diagnosis - Discharge Diagnosis (1) Pneumothorax, right Status: Acute Discharge Plan - Patient Discharge Instructions ACTIVITY: Continue current activity, No heavy lifting Patient Instructions: Heart Attack, Pneumothorax, DI for Chest Tube Insertion - Follow up Plan Follow up with: Theron Campos MD [Family Provider] - 10/29/17 2:00 pm Disposition: Home, Self-Detention Medications: Home Medications Medication Instructions Recorded Confirmed Type Atorvastatin Calcium [Atorvastatin 20 mg PO DAILY 09/29/17 10/17/17 History 20mg Tab] Cholecalciferol (Vitamin D3) 1 cap PO WEEKLY 09/29/17 10/17/17 History [Vitamin D3 50,000 unit Cap] Lisinopril [Lisinopril 10mg Tab] 10 mg PO DAILY 09/29/17 10/17/17 History Pantoprazole Sodium [Protonix 40mg 40 mg PO BID 10/06/17 10/17/17 History tablet] Sucralfate [Carafate 1gm Tab] 1 gm PO ACHS 10/06/17 10/17/17 History fluticasone 100 mcg-vilanterol 25 1 puff INHALATION DAILY 10/08/17 10/18/17 History mcg/dose powder for inhalation hydroxyzine pamoate 25 mg capsule 25 mg PO BID PRN cap 10/08/17 10/17/17 History mirtazapine 15 mg tablet 7.5 mg PO QHS 10/08/17 10/18/17 History Potassium Chloride [Klor-con 20 20 meq PO BID 10/18/17 10/18/17 History mEq tablet] Prescriptions/Medication Reconciliation: Continue hydroxyzine pamoate 25 mg capsule 25 mg PO BID PRN cap PRN Reason: Itching fluticasone 100 mcg-vilanterol 25 mcg/dose powder for inhalation 1 puff INHALATION DAILY mirtazapine 15 mg tablet 7.5 mg PO QHS Lisinopril [Lisinopril 10mg Tab] 10 mg PO DAILY Cholecalciferol (Vitamin D3) [Vitamin D3 50,000 unit Cap] 1 cap PO WEEKLY Atorvastatin Calcium [Atorvastatin 20mg Tab] 20 mg PO DAILY Potassium Chloride [Klor-con 20 mEq tablet] 20 meq PO BID Sucralfate [Carafate 1gm Tab] 1 gm PO ACHS Pantoprazole Sodium [Protonix 40mg tablet] 40 mg PO BID
== END 2017-10-26 09:15 | disposition home or self-care (01) ==
LOC: RAD 09:09 → 2ND 13:18
PROVIDERS: ADMIT Internal Medicine Adolescent Medicine; ATTEND Internal Medicine Adolescent Medicine

== ENCOUNTER → 2017-10-27 09:54 | Outpatient (CLI) | payer MEDICAID, SELFPAY ==
--- NOTE | 2017-10-27 09:59 | XR_ITS ---
XR chest 2V COMPARISON: PA and lateral chest 10/26/2017 HISTORY: Follow-up pneumothorax TECHNIQUE: PA and lateral chest FINDINGS: There is been further decrease in size of the right apical pneumothorax compared with yesterday's film and with earlier films. A small apical pneumothorax still remains. Both lung verdugo are clear of active infiltrate. The large right suprahilar mass is again noted. IMPRESSION: Slowly resolving right pneumothorax, approximately 3 cm right apical pneumothorax remaining at this time
== END ==
PROVIDERS: PCP Internal Medicine Adolescent Medicine; Visit Provider Internal Medicine Adolescent Medicine
DX: J95.811 Postprocedural pneumothorax (principal)
CPT/HCPCS: 71046

== ENCOUNTER 2017-11-03 09:20 | Outpatient (CLI) | payer MEDICAID, SELFPAY ==
[2017-11-03 09:37] VITALS: BMI 15.4
[2017-11-03 09:50] VITALS: BP 116/57; PULSE 68; RESP 18; TEMP 36.7
[2017-11-03 10:01] LABS: Thyroid Stimulating Hormone 0.87 uIU/ml (0.358-3.740)
[2017-11-03 10:20] VITALS: BP 139/65; PULSE 67; RESP 18
[2017-11-03 10:45] VITALS: BP 130/60; PULSE 70; RESP 18
== END 2017-11-03 11:05 | disposition home or self-care (01) ==
LOC: INF 09:27
PROVIDERS: Family Provider Internal Medicine Adolescent Medicine; PCP Internal Medicine Adolescent Medicine; Visit Provider Internal Medicine
DX: D50.9 Iron deficiency anemia, unspecified (principal); C34.91 Malignant neoplasm of unspecified part of right bronchus or lung
CPT/HCPCS: 84443; 96365; J1756

== ENCOUNTER 2017-11-10 09:55 | Outpatient (CLI) | payer MEDICAID, SELFPAY ==
[2017-11-10 10:22] VITALS: BMI 15.4
[2017-11-10 10:31] LABS: Basophils % 0.2 % (0.1-2.0); Eosinophils % 0.2 % (0.1-12.0); Hematocrit 31.1 % (37.0-47.0); Hemoglobin 9.4 g/dL (12.2-16.2); Lymphocytes % 10.8 K/mm3 (10-50); Mean Corpuscular HGB Conc 30.2 g/dL (31.8-35.4); Mean Corpuscular Hemoglobin 26.2 pg (27.0-31.2); Mean Corpuscular Volume 86.7 fl (81-99); Mean Platelet Volume 6.9 fl (7.4-10.4); Monocytes # 0.5 K/mm3 (0.1-1.0); Monocytes % 5.3 % (1.7-9.3); Neutrophils % 83.5 % (37.0-80.0); Platelet Count 739 K/mm3 (142-424); Red Blood Count 3.59 M/mm3 (4.20-5.40); Red Cell Distribution Width 15.8 % (11.5-17.5); White Blood Count 9.6 K/mm3 (4.8-10.8)
[2017-11-10 10:35] VITALS: BP 121/59; PULSE 78; RESP 18; TEMP 36.6; O2SAT 99
[2017-11-10 11:05] VITALS: BP 119/56; PULSE 74; RESP 18; O2SAT 98
[2017-11-10 11:35] VITALS: BP 124/56; PULSE 76; RESP 18; O2SAT 98
[2017-11-10 12:05] VITALS: BP 122/61; PULSE 79; RESP 18; O2SAT 99
[2017-11-10 12:25] VITALS: BP 118/75; PULSE 76; RESP 18; O2SAT 98
== END 2017-11-10 12:30 | disposition home or self-care (01) ==
LOC: INF 10:00
PROVIDERS: Family Provider Internal Medicine Adolescent Medicine; PCP Internal Medicine Adolescent Medicine; Visit Provider Internal Medicine
DX: Z51.11 Encounter for antineoplastic chemotherapy (principal); C34.91 Malignant neoplasm of unspecified part of right bronchus or lung; D50.9 Iron deficiency anemia, unspecified
CPT/HCPCS: 85025; 96365; 96367; 96415; J1756; J9271

== ENCOUNTER 2017-11-17 09:38 | Outpatient (CLI) | payer MEDICAID, SELFPAY ==
[2017-11-17 10:15] VITALS: BP 124/60; PULSE 68; RESP 20; TEMP 36.4; O2SAT 96
[2017-11-17 10:45] VITALS: BP 122/60; PULSE 68; RESP 20; TEMP 36.9; O2SAT 96
[2017-11-17 11:15] VITALS: BP 112/61; PULSE 68; RESP 20; TEMP 36.9; O2SAT 96
== END 2017-11-17 11:15 | disposition home or self-care (01) ==
LOC: INF 09:38
PROVIDERS: Family Provider Internal Medicine Adolescent Medicine; PCP Internal Medicine Adolescent Medicine; Visit Provider Internal Medicine
DX: D50.9 Iron deficiency anemia, unspecified (principal)
CPT/HCPCS: 96365; J1756

== ENCOUNTER 2017-11-17 14:58 | Inpatient (IN) ==
[2017-11-17 15:29] LABS: Basophils % 0.3 % (0.1-2.0); Eosinophils # 0.1 K/mm3 (0.0-0.4); Eosinophils % 0.8 % (0.1-12.0); Hematocrit 29.3 % (37.0-47.0); Hemoglobin 8.8 g/dL (12.2-16.2); Lymphocytes # 1.3 K/mm3 (0.7-4.5); Mean Corpuscular HGB Conc 30.2 g/dL (31.8-35.4); Mean Corpuscular Hemoglobin 25.9 pg (27.0-31.2); Mean Corpuscular Volume 85.7 fl (81-99); Mean Platelet Volume 6.8 fl (7.4-10.4); Monocytes # 0.9 K/mm3 (0.1-1.0); Monocytes % 7.3 % (1.7-9.3); Neutrophils # 9.7 K/mm3 (1.8-7.8); Neutrophils % 80.6 % (37.0-80.0); Platelet Count 581 K/mm3 (142-424); Red Blood Count 3.42 M/mm3 (4.20-5.40); Red Cell Distribution Width 16.1 % (11.5-17.5)
[2017-11-17 15:52] LABS: Albumin Level 2.1 gm/dL (3.4-5.0); Albumin/Globulin Ratio 0.4 (1.1-1.8); Bilirubin,Total 0.1 mg/dL (0.2-1.0); Calcium 10.4 mg/dL (8.5-10.1); Globulin 5.2 gm/dl (1.3-3.2); Total Protein,Serum 7.3 gm/dL (6.4-8.2)
--- NOTE | 2017-11-17 17:32 | History & Physical Report ---
*Admission Date: 11/17/17 *Chief complaint: Shortness of air *History of present illness: 62-year-old white female with history of lung cancer, recent pneumothorax after lung cancer biopsy with good resolution who came to the emergency department 2 days ago and was diagnosed with COPD exacerbation and treated with appropriate antibiotics and steroid administration orally. Unfortunately, she is failed to improve, came back to the ER today, shortness of air noted, failure of outpatient therapy for COPD exacerbation, and admitted to hospital for IV therapy. [facility] History I have reviewed the patient's past medical history: Yes Medical History: Reports:: Anxiety, Cancer (Lung cancer, on Keytruda therapy), Hyperlipidemia, Hypertension, Lung Disease Denies:: Diabetes Mellitus Type 1, Diabetes Mellitus Type 2, MRSA, Seizures Other Medical History: Reports: Anemia. Denies: Blood Transfusion Reaction Other Surgeries: Yes: Cardiac Catheterization Amputation: No Fractures: No - *Social History Smoking Status: Current every day smoker Tobacco Type: cigarettes # Packs/Day (cigarettes): 1 #Yrs smoked (if former smoker): 50 Alcohol Intake: never Occupational Status: employed Housing: house Household Members: none - Psychiatric History Expresses thoughts of harming self/others: None Suicide Plan Description: No Plan Pschychiatric History:: Reports:: Anxiety *Family Hx:: Heart Attack Review of Systems - Review of Systems Review of systems:: unable to obtain, other, pertinent systems reviewed and negative unless documented below - Constitutional Reports anorexia, Reports body ache(s) - Eyes Denies blind spots, Denies blurry vision - ENT Denies abnormal hearing, Denies bleeding gums, Denies difficulty swallowing - *Cardiovascular Reports shortness of breath, Reports shortness of breath with activity, Denies chest pain, Denies chest pain at rest, Denies irregular heart rhythm, Denies leg swelling - *Respiratory Reports chest congestion, Reports cough, Denies change in phlegm color - *Gastrointestinal Denies abdominal pain, Denies belching Meds Home Medications Medication Instructions Recorded Confirmed Type Atorvastatin Calcium [Atorvastatin 20 mg PO DAILY 09/29/17 11/17/17 History 20mg Tab] Lisinopril [Lisinopril 10mg Tab] 10 mg PO DAILY 09/29/17 11/17/17 History Pantoprazole Sodium [Protonix 40mg 40 mg PO BID 10/06/17 11/17/17 History tablet] Sucralfate [Carafate 1gm Tab] 1 gm PO ACHS 10/06/17 11/17/17 History fluticasone 100 mcg-vilanterol 25 1 puff INHALATION DAILY 10/08/17 11/17/17 History mcg/dose powder for inhalation hydroxyzine pamoate 25 mg capsule 25 mg PO BID PRN cap 10/08/17 11/17/17 History mirtazapine 15 mg tablet 7.5 mg PO QHS 10/08/17 11/17/17 History Potassium Chloride [Klor-con 20 20 meq PO BID 10/18/17 11/17/17 History mEq tablet] cefUROXime axetil [Ceftin 250mg 250 mg PO BID 11/17/17 11/17/17 History Tablet] Allergies Allergy/AdvReac Type Severity Reaction Status Date / Time acetaminophen Allergy Mild Rash Verified 11/17/17 15:07 Exam Vital signs and Labs for Last 24 Hours: Temp Pulse Resp BP Pulse Ox 98.1 F 78 16 123/61 95 11/17/17 16:43 11/17/17 16:43 11/17/17 16:43 11/17/17 16:43 11/17/17 16:22 Laboratory Results - last 24 hr 11/17/17 15:15: WBC 12.0 H D, RBC 3.42 L, Hgb 8.8 L, Hct 29.3 L, MCV 85.7, MCH 25.9 L, MCHC 30.2 L, RDW 16.1, Plt Count 581 H, MPV 6.8 L, Neut % (Auto) 80.6 H , Lymph % (Auto) 11.0, [place] % (Auto) 7.3, Eos % (Auto) 0.8, Baso % (Auto) 0.3, Neut # (Auto) 9.7 H, Lymph # (Auto) 1.3, [place] # (Auto) 0.9, Eos # (Auto) 0.1, Baso # (Auto) 0.0 11/17/17 15:15: Sodium 136, Potassium 4.0, Chloride 99, Carbon Dioxide 27, Anion Gap 14.0, BUN 21 H D, Creatinine 0.72, Estimated Creat Clear 39, Estimated GFR 82, Est GFR ( Amer) 99, Glucose 115 H, Calcium 10.4 H, Total Bilirubin 0.1 L, AST 65 H D, ALT 77 D, Alkaline Phosphatase 189 H, Total Protein 7.3, Albumin 2.1 L, Globulin 5.2 H, Albumin/Globulin Ratio 0.4 L 11/17/17 15:15: Lactic Acid 1.5 I & O for Last 24 hours: Intake & Output 11/15/17 11/16/17 11/17/17 11/18/17 11:59 11:59 11:59 11:59 Weight 80 lb Narrative: Frail, cachectic white female who appears older than her stated age. Lungs have symmetric air entry but rhonchi and crackles throughout with some expiratory wheezing. Heart rate regular. Abdomen soft, scaphoid. Extremities with some clubbing, no cyanosis or edema. Neurologic exam intact. H&P: Result - Labs Labs: Short CBC 11/17/17 Range/Units 15:15 WBC 12.0 H D (4.8-10.8) K/mm3 Hgb 8.8 L (12.2-16.2) g/dL Hct 29.3 L (37.0-47.0) % Plt Count 581 H (142-424) K/mm3 BMP 11/17/17 15:15 Sodium 136 Potassium 4.0 Chloride 99 Carbon Dioxide 27 BUN 21 H D Creatinine 0.72 Glucose 115 H Calcium 10.4 H Liver Function 11/17/17 Range/Units 15:15 Total Bilirubin 0.1 L (0.2-1.0) mg/dL AST 65 H D (15-37) U/L ALT 77 D (12-78) U/L Alkaline Phosphatase 189 H (46-116) U/L Albumin 2.1 L (3.4-5.0) gm/dL Assessment and Plan (1) Severe protein-calorie malnutrition Current visit: Yes Status: Acute Category: Medical Code(s): E43 - Unspecified severe protein-calorie malnutrition Complicates all aspects of her care (2) COPD with acute exacerbation Current visit: Yes Status: Acute Category: Medical Code(s): J44.1 - Chronic obstructive pulmonary disease with (acute) exacerbation Agree with admission for IV therapy. Intravenous steroids, ceftriaxone/ azithromycin. (3) Lung cancer Current visit: No Status: Acute Category: Medical Code(s): C34.90 - Malignant neoplasm of unspecified part of unspecified bronchus or lung Continue current plan of care from oncology (4) Shortness of breath Current visit: No Status: Acute Category: Medical Code(s): R06.02 - Shortness of breath Supportive care (5) Tobacco use disorder Current visit: No Status: Acute Category: Medical Code(s): F17.200 - Nicotine dependence, unspecified, uncomplicated
--- NOTE | 2017-11-18 07:29 | Pharmacy Consult Notes ---
[facility] Pharmacy VTE Monitoring - Patient Demographics Admission date: 11/17/17 Report Date: 11/18/17 Time: 07:29 Allergies/Adverse Reactions: Patient Allergies acetaminophen Allergy (Mild, Verified 11/17/17 15:07) Rash Height: 1.6 m Weight: 36.287 kg Patient Problems: Current Active Problems COPD (chronic obstructive pulmonary disease) (Acute) Severe protein-calorie malnutrition (Acute) COPD with acute exacerbation (Acute) - VTE Risk Labs: VTE Related Lab Results Hgb 8.8 g/dL (12.2-16.2) L 11/17/17 15:15 Hct 29.3 % (37.0-47.0) L 11/17/17 15:15 Plt Count 581 K/mm3 (142-424) H 11/17/17 15:15 BUN 21 mg/dL (7-18) H D 11/17/17 15:15 Creatinine 0.72 mg/dL (0.55-1.02) 11/17/17 15:15 Estimated Creat Clear 39 mL/min (0-300) 11/17/17 15:15 Was VTE Risk Assessment Performed: Yes VTE Score: 2 VTE Risk Level: Low Risk Clinical Trial Participant: No - Prophylaxis VTE Prophylaxis Ordered?: Yes Types of VTE Prophylaxis: TEDS Knee High Location of Applied Device: Bilateral Lower Extremeties
--- NOTE | 2017-11-18 07:46 | Progress Note ---
Internal Medicine - PN: Subj *Date: 11/18/17 *Time: 07:44 Interval history: Patient is resting in bed. Continues to have poor appetite. State she is coughing up a moderate amount of barajas sputum. Alert and oriented x3. Rate and rhythm regular. No LE edema. Lung sounds with musical wheezes throughout. Abdomen, soft, sunken, nontender Exam Vital signs and Labs for Last 24 Hours: Temp Pulse Resp BP Pulse Ox 98.1 F 83 20 109/55 93 L 11/18/17 07:25 11/18/17 07:25 11/18/17 07:25 11/18/17 07:25 11/18/17 07:25 Laboratory Results - last 24 hr 11/17/17 15:15: WBC 12.0 H D, RBC 3.42 L, Hgb 8.8 L, Hct 29.3 L, MCV 85.7, MCH 25.9 L, MCHC 30.2 L, RDW 16.1, Plt Count 581 H, MPV 6.8 L, Neut % (Auto) 80.6 H , Lymph % (Auto) 11.0, [place] % (Auto) 7.3, Eos % (Auto) 0.8, Baso % (Auto) 0.3, Neut # (Auto) 9.7 H, Lymph # (Auto) 1.3, [place] # (Auto) 0.9, Eos # (Auto) 0.1, Baso # (Auto) 0.0 11/17/17 15:15: Sodium 136, Potassium 4.0, Chloride 99, Carbon Dioxide 27, Anion Gap 14.0, BUN 21 H D, Creatinine 0.72, Estimated Creat Clear 39, Estimated GFR 82, Est GFR ( Amer) 99, Glucose 115 H, Calcium 10.4 H, Total Bilirubin 0.1 L, AST 65 H D, ALT 77 D, Alkaline Phosphatase 189 H, Total Protein 7.3, Albumin 2.1 L, Globulin 5.2 H, Albumin/Globulin Ratio 0.4 L 11/17/17 15:15: Lactic Acid 1.5 I & O for Last 24 hours: Intake & Output 11/15/17 11/16/17 11/17/17 11/18/17 11:59 11:59 11:59 11:59 Intake Total 260 / 260 Balance 260 / 260 Weight 80 lb Assessment and Plan (1) Severe protein-calorie malnutrition Current visit: Yes Status: Acute Category: Medical Code(s): E43 - Unspecified severe protein-calorie malnutrition (2) COPD with acute exacerbation Current visit: Yes Status: Acute Category: Medical Code(s): J44.1 - Chronic obstructive pulmonary disease with (acute) exacerbation (3) Lung cancer Current visit: No Status: Acute Category: Medical Code(s): C34.90 - Malignant neoplasm of unspecified part of unspecified bronchus or lung (4) Shortness of breath Current visit: No Status: Acute Category: Medical Code(s): R06.02 - Shortness of breath (5) Tobacco use disorder Current visit: No Status: Acute Category: Medical Code(s): F17.200 - Nicotine dependence, unspecified, uncomplicated - Assessment and plan all Dx Assessment and Plan for all problems:: Continue IV antibiotics and nebulizer treatments
[2017-11-19 07:45] VITALS: BP 126/60
--- NOTE | 2017-11-19 08:02 | Discharge Summary ---
General - General Admission date:: 11/17/17 Discharge date: 11/19/17 HPI HPI: 62-year-old white female with history of lung cancer, recent pneumothorax after lung cancer biopsy with good resolution who came to the emergency department 2 days ago and was diagnosed with COPD exacerbation and treated with appropriate antibiotics and steroid administration orally. Unfortunately, she is failed to improve, came back to the ER today, shortness of air noted, failure of outpatient therapy for COPD exacerbation, and admitted to hospital for IV therapy. Hospital Course Hospital Course: Patient was admitted, placed on IV antibiotics and steroids. Tolerated this very nicely. She ate well over the next couple of days. This morning she felt much better, walking around the room, doing her own ADL activities, eating 100% of her breakfast. Exam had improved as noted below. She will be discharged home on antibiotics and steroids, close follow-up with hematology oncology and our office. Objective Vital signs: Temp Pulse Resp BP Pulse Ox 98.4 F 102 H 18 126/60 95 11/19/17 07:45 11/19/17 07:45 11/19/17 07:45 11/19/17 07:45 11/19/17 07:45 Narrative: Patient is pleasant, alert, oriented 3. O2 saturations 92% on room air. Lungs have rhonchi but symmetric air entry and slightly better air entry than admission with less wheezing. No edema, no clubbing. Heart rate regular. DS: Diagnosis - Discharge Diagnosis (1) Severe protein-calorie malnutrition Status: Acute (2) COPD with acute exacerbation Status: Acute (3) Lung cancer Status: Acute (4) Shortness of breath Status: Acute (5) Tobacco use disorder Status: Acute Discharge Plan - Patient Discharge Instructions ACTIVITY: Continue current activity DIET: continue same diet - Follow up Plan Follow up with: Odette Gamboa APRN [Nurse Practitioner] - 11/25/17 Disposition: Home, Self-Nursing Home Medications: Home Medications Medication Instructions Recorded Confirmed Type Atorvastatin Calcium [Atorvastatin 20 mg PO DAILY 09/29/17 11/17/17 History 20mg Tab] Lisinopril [Lisinopril 10mg Tab] 10 mg PO DAILY 09/29/17 11/17/17 History Pantoprazole Sodium [Protonix 40mg 40 mg PO BID 10/06/17 11/17/17 History tablet] Sucralfate [Carafate 1gm Tab] 1 gm PO ACHS 10/06/17 11/17/17 History fluticasone 100 mcg-vilanterol 25 1 puff INHALATION DAILY 10/08/17 11/17/17 History mcg/dose powder for inhalation hydroxyzine pamoate 25 mg capsule 25 mg PO BID PRN cap 10/08/17 11/17/17 History mirtazapine 15 mg tablet 7.5 mg PO QHS 10/08/17 11/17/17 History Potassium Chloride [Klor-con 20 20 meq PO BID 10/18/17 11/17/17 History mEq tablet] cefUROXime axetil [Ceftin 250mg 250 mg PO BID 11/17/17 11/17/17 History Tablet] Cholecalciferol (Vitamin D3) 50,000 units PO WEEKLY 11/18/17 11/18/17 History [Vitamin D3 50,000 unit Cap] Prescriptions/Medication Reconciliation: New Cefdinir [Omnicef 300mg Capsule] 300 mg PO BID #14 cap predniSONE [Prednisone 20mg Tab] 20 mg PO BID #14 tab Azithromycin [Zithromax 250mg tab] 250 mg PO DIRECTED #6 tab Continue hydroxyzine pamoate 25 mg capsule 25 mg PO BID PRN cap PRN Reason: Itching fluticasone 100 mcg-vilanterol 25 mcg/dose powder for inhalation 1 puff INHALATION DAILY mirtazapine 15 mg tablet 7.5 mg PO QHS Lisinopril [Lisinopril 10mg Tab] 10 mg PO DAILY Atorvastatin Calcium [Atorvastatin 20mg Tab] 20 mg PO DAILY Potassium Chloride [Klor-con 20 mEq tablet] 20 meq PO BID Cholecalciferol (Vitamin D3) [Vitamin D3 50,000 unit Cap] 50,000 units PO WEEKLY Sucralfate [Carafate 1gm Tab] 1 gm PO ACHS Pantoprazole Sodium [Protonix 40mg tablet] 40 mg PO BID Benzonatate [Tessalon [place] 100mg Cap] 100 mg PO Q4HP PRN #30 cap PRN Reason: Cough Discontinued cefUROXime axetil [Ceftin 250mg Tablet] 250 mg PO BID
--- NOTE | 2017-12-15 11:19 | Emergency Department Note ---
ED Disposition Clinical Impression: COPD (chronic obstructive pulmonary disease) Qualifiers: COPD type: unspecified COPD Qualified Code(s): J44.9 - Chronic obstructive pulmonary disease, unspecified Disposition: Admitted As Inpatient Condition on Discharge: Good Time of Disposition: 16:15 - Critical Care Critical Care Time: No Attestation: On 11/17/17, the high probability of a clinically significant, sudden or life threatening deterioration of the following system(s) required my full and direct attention, intervention and personal management. The time I documented below is in addition to time spent performing reported procedures but includes the following listed in this critical care notation. Medical Decision Making - Medical Records Medical records reviewed: Yes: I reviewed the patient's medical records. - Josafat Inquiry Pt receiving controlled substance: No Vital Signs: 11/17/17 15:02 11/17/17 16:22 11/17/17 16:43 Temperature 97.8 F 98.3 F 98.1 F Temperature Source Oral Oral Pulse Rate 78 Pulse Rate [Right Radial] 74 74 Respiratory Rate 22 16 16 Blood Pressure 123/61 Blood Pressure [Right Arm] 136/69 123/61 Blood Pressure Mean [Right Arm] 91 81 Blood Pressure Source [Right Arm] Automatic Cuff Blood Pressure Position [Right Arm] Sitting Sitting 02 Sat by Pulse Oximetry 96 95 Oxygen Delivery Method Room Air Nasal Cannula - Lab Data Lab results reviewed: Yes: I reviewed the patient's lab results. Lab Results 11/17/17 15:15: WBC 12.0 H D, RBC 3.42 L, Hgb 8.8 L, Hct 29.3 L, MCV 85.7, MCH 25.9 L, MCHC 30.2 L, RDW 16.1, Plt Count 581 H, MPV 6.8 L, Neut % (Auto) 80.6 H , Lymph % (Auto) 11.0, Blount % (Auto) 7.3, Eos % (Auto) 0.8, Baso % (Auto) 0.3, Neut # (Auto) 9.7 H, Lymph # (Auto) 1.3, Blount # (Auto) 0.9, Eos # (Auto) 0.1, Baso # (Auto) 0.0 11/17/17 15:15: Sodium 136, Potassium 4.0, Chloride 99, Carbon Dioxide 27, Anion Gap 14.0, BUN 21 H D, Creatinine 0.72, Estimated Creat Clear 39, Estimated GFR 82, Est GFR ( Amer) 99, Glucose 115 H, Calcium 10.4 H, Total Bilirubin 0.1 L, AST 65 H D, ALT 77 D, Alkaline Phosphatase 189 H, Total Protein 7.3, Albumin 2.1 L, Globulin 5.2 H, Albumin/Globulin Ratio 0.4 L 11/17/17 15:15: Lactic Acid 1.5 Result diagrams: 11/17/17 15:15 11/17/17 15:15 Orders (Tests/Meds): ED MEDICATIONS Discontinued Medications Generic Name Dose Route Start Last Admin Trade Name Freq PRN Reason Stop Dose Admin Albuterol/Ipratropium 3 ml 11/17/17 15:12 11/17/17 15:15 Duoneb 3ml [facility] 11/17/17 15:13 3 ml ONCE ONE Administration Albuterol/Ipratropium 3 ml 11/17/17 16:28 11/19/17 06:10 Duoneb 3ml [facility] 12/17/17 16:27 3 ml Q4HP PRN Administration Shortness Of Breath Albuterol/Ipratropium 3 ml 11/17/17 16:28 Duoneb 3ml [facility] 12/17/17 16:27 Q4HP PRN Shortness Of Breath Atorvastatin Calcium 20 mg 11/18/17 21:00 11/18/17 21:05 Lipitor 20mg Tablet PO 12/18/17 20:59 20 mg HS ALYX Administration Hydroxyzine Pamoate 25 mg 11/17/17 16:28 Vistaril 25mg Capsule PO 12/17/17 16:27 BIDP PRN Itching Azithromycin 500 mg/ Sodium 250 mls @ 250 mls/hr 11/17/17 16:15 11/17/17 17: 43 Chloride IV 12/01/17 16:14 250 mls/hr Q24H ALYX Administration Protocol Ceftriaxone Sodium 1 gm/ 50 mls @ 100 mls/hr 11/17/17 16:15 11/17/17 16:42 Sodium Chloride IV 12/01/17 16:14 100 mls/hr Q24H ALYX Administration Protocol Azithromycin 500 mg/ Sodium 250 mls @ 250 mls/hr 11/18/17 16:00 11/18/17 15: 41 Chloride IV 12/01/17 15:59 250 mls/hr Q24H ALYX Administration Protocol Ceftriaxone Sodium 1 gm/ 50 mls @ 100 mls/hr 11/18/17 13:00 11/18/17 13:35 Sodium Chloride IV 12/01/17 12:59 100 mls/hr Q24H ALYX Administration Protocol Lisinopril 10 mg 11/18/17 09:00 11/18/17 09:47 Zestril 10mg Tablet PO 12/18/17 08:59 10 mg DAILY ALYX Administration Methylprednisolone Sodium Succinate 60 mg 11/17/17 21:00 Methylprednisolone Sod Succinate 40mg Vial IV 12/17/17 20:59 Q12 ALYX Methylprednisolone Sodium Succinate 60 mg 11/17/17 21:00 Methylprednisolone Sod Succinate 40mg Vial IV 12/17/17 20:59 Q12 ALYX Methylprednisolone Sodium Succinate 60 mg 11/17/17 17:45 11/18/17 02:54 Methylprednisolone Sod Succinate 40mg Vial IV 12/17/17 17:44 60 mg Q8H ALYX Administration Methylprednisolone Sodium Succinate 60 mg 11/18/17 11:00 11/19/17 02:55 Solu-Medrol 125mg/2ml Vial IV 12/18/17 10:59 60 mg Q8H ALYX Administration Mirtazapine 7.5 mg 11/18/17 21:00 11/18/17 21:05 Remeron 15mg Tablet PO 12/18/17 20:59 7.5 mg HS ALYX Administration Pt's Own Med 1 puff 11/18/17 09:00 11/19/17 06:10 Fluticasone/ INHALATION 12/18/17 08:59 1 puff Vilanterol [Breo DAILY ALYX Administration Ellipta] 100-25 Mcg Inh Pantoprazole Sodium 40 mg 11/17/17 21:00 11/18/17 22:26 Protonix 40mg Tablet PO 12/17/17 20:59 40 mg BID ALXY Administration Potassium Chloride 20 meq 11/17/17 21:00 11/18/17 21:05 Klor-Con 20meq Tablet PO 12/17/17 20:59 20 meq BID ALYX Administration Sodium Chloride 3 ml 11/18/17 07:42 11/18/17 08:48 Sodium Choride 3ml Neb Soln IH 11/18/17 07:43 3 ml ONCE ONE Administration Sucralfate 1 gm 11/17/17 16:30 11/19/17 06:16 Carafate 1gm Tablet PO 12/17/17 16:29 1 gm ACHS ALYX Administration - Radiology Data #1 Image(s): Chest Image Reviewed: Yes I reviewed the patient's radiology results, Yes I reviewed the patient's radiology image, Yes I discussed the image results w/the radiologist, Yes I have reviewed radiologist's interpretation mass c/w lung cancer, no infiltrate seen [id number] [facility] [address] XRay Report Signed Patient: Xochilt Chaudhry MR#: [id number] : 1955 Acct:[id number] Age/Sex: 62 / F ADM Date: 11/17/17 Loc: ER Attending Dr: Ordering Physician: Javy Springer MD Date of Service: 11/17/17 Procedure(s): XR chest 2V Accession Number(s): [id number] cc: Theron Campos MD; Charlie Polo MD~ XR chest 2V HISTORY: ITS.REASON: COUGH ORDERING PHYSICIAN: Javy Springer MD PATIENT AGE: 62 years COMPARISON: 11/15/2017 FINDINGS: There is hyperinflation with attenuation of the peripheral pulmonary vessels consistent with COPD. Increased density in the left mid lung is noted some which may be due to overlying soft tissues. Superimposed small patchy area of infiltrate also considered. Right suprahilar mass with subsegmental volume loss of the right upper lobe noted. No evidence of pneumothorax. No acute bony anomalies. IMPRESSION: 1. COPD with possible patchy infiltrate in the left midlung 2. No change right suprahilar mass with subsegmental right upper lobe collapse Dictated By: Charlie Polo MD Signed By: <Electronically signed by Charlie Polo MD in OV> 11/17/17 1546 DD/ 1540 - ECG Data Tracing #1 I reviewed this ECG and interpreted as documented below: No acute ischemic changes, heart rate 88, no arrhythmias ECG normal with no acute: arrhythmias, ischemia, conduction abnormalities, chamber hypertrophy Normal Sinus Rhythm: Yes - Physician Consults Physician Consulted: Dr Campos Time: 16:15 Reason -: Admission, Pt condition Comment/Response: Because of patient presentation findings, agreeable with hospitalization. Plan is to continue IV antibiotics, IV steroids, neb treatments. - Reevaluation(s) Time: 16:15 Reevaluation #1: Upon reevaluation patient appears medically stable, display no clinical signs of improvement, which indicate need for hospitalization. Resp/SOB HPI - General Chief Complaint: Shortness of Breath/Dyspnea Stated Complaint: SOA Time Seen by Provider: 11/17/17 15:12 Mode of Arrival: Ambulatory Limitations: No Limitations Description of Symptoms (Recalled from ER Triage Doc. by RN): SOA FOR OVER ONE WEEK AND WORSE IN THE LAST HOUR. PT WITH HX OF LUNG CANCER. WAS SEEN HERE A FEW DAYS AGO FOR COPD EXACERBATION. - History of Present Illness This is a 62-year-old female patient recently diagnosed with lung cancer, presenting to the emergency room with shortness of breath for the past 3 days, gradually getting worse. Patient denies any recent travel, denies any recent exposure to sick contacts. She was seen a few days in the emergency room for COPD exacerbation, started on antibiotics, but feeling no better. MD Complaint: shortness of breath, cough, pain with inspiration Onset (ago): day(s) (3) Context: recent illness Severity: moderate Consistency/Duration: constant Relieving factors: bronchodilators, medication Exacerbating factors: exertion Known history of: COPD Associated symptoms: chest pain, fever, cough, wheezing, sputum production Treatment prior to arrival: other (antibiotics) - Related Data Home Medications Medication Instructions Recorded Confirmed Atorvastatin Calcium [Atorvastatin 20 mg PO DAILY 09/29/17 12/05/17 20mg Tab] Lisinopril [Lisinopril 10mg Tab] 10 mg PO DAILY 09/29/17 12/08/17 Pantoprazole Sodium [Protonix 40mg 40 mg PO BID 10/06/17 12/08/17 tablet] Sucralfate [Carafate 1gm Tab] 1 gm PO ACHS 10/06/17 12/08/17 hydroxyzine pamoate 25 mg capsule 25 mg PO BID PRN cap 10/08/17 12/08/17 mirtazapine 15 mg tablet 7.5 mg PO QHS 10/08/17 12/08/17 Potassium Chloride [Klor-con 20 20 meq PO BID 03/24/18 05/14/18 mEq tablet] Aspirin [Aspirin 81mg chewable 81 mg PO DAILY 11/28/17 12/05/17 tab] Ipratropium/Albuterol Sulfate 3 ml IH TID 12/05/17 12/08/17 [Duoneb 3mL neb] predniSONE [Prednisone 10mg Tab 10 mg PO DAILY 12/08/17 12/08/17 Dose-Pack] Previous Rx's Medication Instructions Recorded Benzonatate [Tessalon Perle 100mg 100 mg PO Q4HP PRN #30 cap 11/15/17 Cap] Allergies Allergy/AdvReac Type Severity Reaction Status Date / Time acetaminophen Allergy Mild Rash Verified 12/10/17 11:36 [facility] History I have reviewed the patient's past medical history: Yes Medical History: Reports:: Anxiety, Cancer (Lung cancer, on Keytruda therapy), Hyperlipidemia, Hypertension, Lung Disease Denies:: Diabetes Mellitus Type 1, Diabetes Mellitus Type 2, MRSA, Seizures Other Medical History: Reports: Anemia. Denies: Blood Transfusion Reaction Other Surgeries: Yes: Cardiac Catheterization Amputation: No Fractures: No - Social History Educational Level: Attended Grade School Smoking Status: Current every day smoker Tobacco Type: cigarettes # Packs/Day (cigarettes): 1 #Yrs smoked (if former smoker): 50 Alcohol Intake: never Occupational Status: employed Housing: house Household Members: none - Psychiatric History Expresses thoughts of harming self/others: None Suicide Plan Description: No Plan Pschychiatric History:: Reports:: Anxiety Family Hx:: Heart Attack ROS Obtained: Yes All systems reviewed & no additional complaints, Yes Systems reviewed as appropriate & no additional complaints - Cardiovascular Cardiovascular: Reports system reviewed and no additional complaints, except as docu, Reports as per HPI, Reports chest pain at rest, Reports dyspnea - Respiratory Respiratory: Yes system reviewed and no additional complaints, except as docu, Yes as per HPI, Yes dyspnea Physical Exam - General General appearance: alert, in distress (mild) - Head Head exam: atraumatic, normocephalic, normal inspection - Neck Neck exam: Present: normal inspection, full ROM, trachea midline. Absent: meningismus, lymphadenopathy - Chest Chest inspection: Present: normal inspection, symmetric chest wall rise, tenderness - Respiratory Respiratory exam: Present: wheezes. Absent: respiratory distress - Cardiovascular Cardiovascular exam: Present: regular rate, normal rhythm. Absent: JVD - Abdominal Exam Abdominal exam: Present: soft, normal bowel sounds. Absent: distention, tenderness, guarding - Extremities Exam Extremities exam: Present: normal inspection, full ROM, normal capillary refill. Absent: calf tenderness - Back Exam Back exam: Present: normal inspection. Absent: tenderness - Neurological Exam Neurological exam: Present: alert, oriented X3 - Psychiatric Psychiatric exam: Present: normal affect, normal mood - Skin Skin exam: Present: warm, dry, intact, normal color - Lymphatic Lymphatic Findings: no adenopathy
== END 2017-11-19 09:10 | disposition home or self-care (01) ==
LOC: 2ND 14:58 → ER 14:58 → OBSVTOIN 16:43 → 2ND 16:44
PROVIDERS: ADMIT Internal Medicine Adolescent Medicine; ATTEND Internal Medicine Adolescent Medicine

== ENCOUNTER 2017-11-26 08:51 | Outpatient (CLI) | payer MEDICAID, SELFPAY ==
[2017-11-26 08:45] VITALS: BP 103/63; PULSE 97; RESP 20; TEMP 37; O2SAT 94
[2017-11-26 08:50] VITALS: BMI 15.0
[2017-11-26 09:11] LABS: Basophils % 0.1 % (0.1-2.0); Eosinophils % 0.2 % (0.1-12.0); Hematocrit 36.3 % (37.0-47.0); Lymphocytes # 1.2 K/mm3 (0.7-4.5); Lymphocytes % 8.8 K/mm3 (10-50); Mean Corpuscular HGB Conc 30.2 g/dL (31.8-35.4); Mean Corpuscular Hemoglobin 25.8 pg (27.0-31.2); Mean Corpuscular Volume 85.4 fl (81-99); Mean Platelet Volume 6.8 fl (7.4-10.4); Monocytes # 0.4 K/mm3 (0.1-1.0); Monocytes % 2.9 % (1.7-9.3); Neutrophils # 11.5 K/mm3 (1.8-7.8); Platelet Count 724 K/mm3 (142-424); Red Blood Count 4.26 M/mm3 (4.20-5.40); Red Cell Distribution Width 16.7 % (11.5-17.5)
[2017-11-26 09:19] LABS: MANUAL DIFFERENTIAL MANUAL DIFFERENTIAL (MANUAL DIFF)
[2017-11-26 09:21] LABS: Alanine Aminotransferase 230 U/L (12-78); Albumin Level 2.2 gm/dL (3.4-5.0); Albumin/Globulin Ratio 0.4 (1.1-1.8); Alkaline Phosphatase 198 U/L (46-116); Anion Gap 13.2 mEq/L (5-15); Bilirubin,Total 0.5 mg/dL (0.2-1.0); Blood Urea Nitrogen 19 mg/dL (7-18); Calcium 10.5 mg/dL (8.5-10.1); Carbon Dioxide 30 mmol/L (21.0-32.0); Chloride 97 mmol/L (98-107); Creatinine Clearance Estimated 35 mL/min (0-300); Creatinine,Serum 0.66 mg/dL (0.55-1.02); Estimated Glomerular Filt Rate 90 ml/min (>60); GFR (African American) 109 ML/MIN (>60); Globulin 5.5 gm/dl (1.3-3.2); Glucose 158 mg/dL (74-106); Sodium 136 mmol/L (136-145); Total Protein,Serum 7.7 gm/dL (6.4-8.2)
[2017-11-26 09:22] LABS: Aspartate Amino Transferase 71 U/L (15-37); Potassium 4.2 mmoL/L (3.5-5.1)
[2017-11-26 09:50] LABS: Lymphocytes % 8 % (10-50); Monocytes % 3 % (2-9); Neutrophils % 89 % (42-76); Platelet Estimate Marked Increase; Total Cells Counted 100
[2017-11-26 09:51] LABS: Hypochromasia 2+
[2017-11-26 11:00] VITALS: BP 113/63; PULSE 95; RESP 18; TEMP 37; O2SAT 98
[2017-11-26 11:15] VITALS: BP 109/78; PULSE 92; RESP 18; TEMP 37; O2SAT 97
[2017-11-26 11:30] VITALS: BP 120/64; PULSE 86; RESP 18; TEMP 37; O2SAT 97
[2017-11-26 11:45] VITALS: BP 112/62; PULSE 89; RESP 18; TEMP 36.8; O2SAT 96
== END 2017-11-26 11:45 | disposition home or self-care (01) ==
LOC: INF 08:51
PROVIDERS: Family Provider Internal Medicine Adolescent Medicine; PCP Internal Medicine Adolescent Medicine; Visit Provider Internal Medicine
DX: D50.9 Iron deficiency anemia, unspecified (principal)
CPT/HCPCS: 80053; 85007; 85025; 96365; J1756

== ENCOUNTER 2017-12-01 08:55 | Outpatient (CLI) | payer MEDICAID, SELFPAY ==
[2017-12-01] VITALS (7 sets, daily range): BP systolic 92–125; BP diastolic 52–78; PULSE 82–92; RESP 18; TEMP 36.3–36.6; O2SAT 97–98
== END 2017-12-01 11:15 | disposition home or self-care (01) ==
LOC: INF 08:55
PROVIDERS: Family Provider Internal Medicine Adolescent Medicine; PCP Internal Medicine Adolescent Medicine; Visit Provider Internal Medicine
DX: D50.9 Iron deficiency anemia, unspecified (principal); C34.91 Malignant neoplasm of unspecified part of right bronchus or lung
CPT/HCPCS: 96365; 96413; J1756; J9271

== ENCOUNTER 2017-12-08 08:06 | Outpatient (CLI) | payer MEDICAID, SELFPAY ==
[2017-12-08 08:50] VITALS: BP 116/61; PULSE 68; RESP 20; TEMP 36.7; O2SAT 95
[2017-12-08 09:20] VITALS: BP 107/59; PULSE 68; RESP 20; TEMP 36.8; O2SAT 94
[2017-12-08 09:50] VITALS: BP 122/70; PULSE 68; RESP 20; TEMP 36.9; O2SAT 96
== END 2017-12-08 09:50 | disposition home or self-care (01) ==
LOC: INF 08:12
PROVIDERS: Family Provider Internal Medicine Adolescent Medicine; PCP Internal Medicine Adolescent Medicine; Visit Provider Internal Medicine
DX: D50.9 Iron deficiency anemia, unspecified (principal); C34.90 Malignant neoplasm of unspecified part of unspecified bronchus or lung
CPT/HCPCS: 96365; J1756

== ENCOUNTER 2017-12-16 11:45 | Outpatient (CLI) | payer MEDICAID, SELFPAY ==
[2017-12-16 12:04] VITALS: BMI 14.3
[2017-12-16 12:27] LABS: Eosinophils % 0.1 % (0.1-12.0); Hematocrit 31.8 % (37.0-47.0); Hemoglobin 9.9 g/dL (12.2-16.2); Lymphocytes # 0.7 K/mm3 (0.7-4.5); Lymphocytes % 3.8 K/mm3 (10-50); Mean Corpuscular HGB Conc 31.2 g/dL (31.8-35.4); Mean Corpuscular Volume 83.3 fl (81-99); Monocytes # 0.5 K/mm3 (0.1-1.0); Monocytes % 2.5 % (1.7-9.3); Neutrophils # 17.8 K/mm3 (1.8-7.8); Neutrophils % 93.7 % (37.0-80.0); Platelet Count 650 K/mm3 (142-424); Red Blood Count 3.82 M/mm3 (4.20-5.40); Red Cell Distribution Width 17.8 % (11.5-17.5)
[2017-12-16 12:31] LABS: MANUAL DIFFERENTIAL MANUAL DIFFERENTIAL (MANUAL DIFF)
[2017-12-16 12:38] LABS: Alanine Aminotransferase 153 U/L (12-78); Albumin Level 2.1 gm/dL (3.4-5.0); Albumin/Globulin Ratio 0.4 (1.1-1.8); Alkaline Phosphatase 179 U/L (46-116); Anion Gap 13.4 mEq/L (5-15); Aspartate Amino Transferase 63 U/L (15-37); Bilirubin,Total 0.3 mg/dL (0.2-1.0); Blood Urea Nitrogen 26 mg/dL (7-18); Calcium 10.3 mg/dL (8.5-10.1); Carbon Dioxide 29 mmol/L (21.0-32.0); Chloride 92 mmol/L (98-107); Creatinine Clearance Estimated 33 mL/min (0-300); Creatinine,Serum 0.73 mg/dL (0.55-1.02); Estimated Glomerular Filt Rate 80 ml/min (>60); GFR (African American) 97 ML/MIN (>60); Globulin 5.2 gm/dl (1.3-3.2); Glucose 158 mg/dL (74-106); Potassium 4.4 mmoL/L (3.5-5.1); Sodium 130 mmol/L (136-145); Total Protein,Serum 7.3 gm/dL (6.4-8.2)
[2017-12-16 12:45] VITALS: BP 95/74; PULSE 66; RESP 20; TEMP 37.1; O2SAT 96
[2017-12-16 13:02] LABS: Lymphocytes % 11 % (10-50); Monocytes % 3 % (2-9); Neutrophils % 86 % (42-76); Total Cells Counted 100
[2017-12-16 13:04] LABS: Hypochromasia 1+; Platelet Estimate Marked Increase
[2017-12-16 13:05] LABS: RBC Morphology Normal
== END 2017-12-16 12:45 | disposition home or self-care (01) ==
LOC: INF 16:13
PROVIDERS: Family Provider Internal Medicine Adolescent Medicine; PCP Internal Medicine Adolescent Medicine; Visit Provider Nurse Practitioner Family
DX: D64.9 Anemia, unspecified (principal)
CPT/HCPCS: 36415; 80053; 85007; 85025